=== PATIENT | female | born 1970 | race Caucasian/White ===

== ENCOUNTER 2017-09-18 10:47 | Emergency (ER) | payer MEDICARE, MEDICAID ==
[~2017-09-18] VITALS: Ht 165.1 cm; Wt 90.2 kg
[~2017-09-18 10:47] MED LIST: GABA-530 PO; IBUP-1985 PO; MEDR5TAB PO; METF500T PO; ONDA4TAB12 PO
[2017-09-18 10:50] VITALS: BP 130/80
[2017-09-18 11:19] LABS: CLARITY,URINE SLIGHTLY CLOUDY (Clear); COLOR,URINE YELLOW (Yellow); GLUCOSE, URINE NEGATIVE (Neg); KETONES,URINE NEGATIVE (Neg); LEUKOCYTE ESTERASE ,URINE NEGATIVE (Neg); NITRITES, URINE NEGATIVE (Neg); OCCULT BLOOD,URINE NEGATIVE (Neg); PROTEIN,URINE NEGATIVE (Neg)
[2017-09-18 11:20] LABS: BASOPHILS % (AUTO) 0.4 % (0-1); EOSINOPHILS # (AUTO) 0.2 X10'3 (0-0.9); HEMATOCRIT 40.7 % (35.0-45.0); HEMOGLOBIN 13.9 g/dl (12.0-16.0); LYMPHOCYTES # (AUTO) 1.3 X10'3 (1.1-4.8); LYMPHOCYTES % (AUTO) 14.4 % (21-51); MEAN CORPUSCULAR HEMOGLOBIN 31.3 PG (27.0-31.0); MEAN CORPUSCULAR HGB CONC 34.1 % (33.0-36.5); MEAN CORPUSCULAR VOLUME 91.8 FL (78-98); MEAN PLATELET VOLUME 7.5 FL (7.4-10.4); MONOCYTES # (AUTO) 0.3 X10'3 (0-0.9); MONOCYTES % (AUTO) 3.4 % (2-12); NEUTROPHILS # (AUTO) 7.4 X10'3 (1.8-7.7); NEUTROPHILS % (AUTO) 79.8 % (42-75); PLATELET COUNT 297 X10'3 (140-440); RED BLOOD COUNT 4.43 X10'6 (4.20-5.60); RED CELL DISTRIBUTION WIDTH 13.6 % (11.5-14.5); WHITE BLOOD COUNT 9.2 X10'3 (4.5-11.0)
[2017-09-18 11:25] LABS: UA COLLECTION TYPE CLN CATCH MIDSTREAM
[2017-09-18 11:26] LABS: SQUAMOUS EPITHELIAL CELL,UR MANY /LPF (FEW)
[2017-09-18 11:27] LABS: BACTERIA,URINE 2+ /HPF (Neg); MUCUS STRANDS FEW /LPF (Neg); RBC,URINE 0-2 /HPF (0-2); WBC,URINE 0-4 /HPF (0-4)
[2017-09-18 11:29] LABS: INR 0.9 INR; PROTHROMBIN TIME 9.8 SECONDS (9.0-12.0)
[2017-09-18 11:34] LABS: ALANINE AMINOTRANSFERASE 24 U/L (12-78); ALBUMIN 3.8 G/DL (3.4-5.0); ALBUMIN/GLOBULIN RATIO 0.9 (1.1-1.5); ALKALINE PHOSPHATASE 83 IU/L (46-116); ANION GAP 6 (8-16); ASPARTATE AMINO TRANSFERASE 17 U/L (10-37); BILIRUBIN,TOTAL 0.3 MG/DL (0.1-1.0); BLOOD UREA NITROGEN 14 MG/DL (7-18); BUN/CREATININE RATIO 21.5 (6.6-38.0); CALCIUM 8.7 MG/DL (8.5-10.1); CHLORIDE 104 MMOL/L (99-107); CREATININE 0.65 MG/DL (0.40-0.90); GLUCOSE 96 MG/DL (70-104); SODIUM 140 MMOL/L (135-145); TOTAL CARBON DIOXIDE 29.7 MMOL/L (24-32); TOTAL PROTEIN 7.9 G/DL (6.4-8.2); eGFR > 90 ML/MIN
== END 2017-09-18 14:13 | disposition left against medical advice (07) ==
LOC: ER 10:48
DX: R10.9 Unspecified abdominal pain (principal); Z53.21 Procedure and treatment not carried out due to patient leaving prior to being seen by health care provider
CPT/HCPCS: 36415; 80053; 81001; 85025; 85610

== ENCOUNTER 2017-11-14 15:52 | Emergency (ER) | payer MEDICARE, MEDICAID ==
[~2017-11-14] VITALS: Ht 165.1 cm; Wt 90.0 kg
[2017-11-14] MEDS ORDERED: HYDROcodone/acetaminophen 5mg/325mg tablet PO ONE (16:05)
[2017-11-14 16:06] VITALS: BP 126/86
[2017-11-14] MEDS ORDERED: HYDR-569 PO (16:26)
== END 2017-11-14 17:11 | disposition home or self-care (01) ==
LOC: ER 15:53
DX: S82.402A Unspecified fracture of shaft of left fibula, initial encounter for closed fracture (principal); E11.9 Type 2 diabetes mellitus without complications; M79.7 Fibromyalgia; J45.909 Unspecified asthma, uncomplicated; Z90.49 Acquired absence of other specified parts of digestive tract; Z98.51 Tubal ligation status; Z88.5 Allergy status to narcotic agent; Z79.899 Other long term (current) drug therapy; Z79.84 Long term (current) use of oral hypoglycemic drugs; W01.0XXA Fall on same level from slipping, tripping and stumbling without subsequent striking against object, initial encounter; Y93.89 Activity, other specified; Y92.89 Other specified places as the place of occurrence of the external cause; Y99.8 Other external cause status
CPT/HCPCS: 29515; 73610; 99284; A6449

== ENCOUNTER 2017-11-27 19:22 | Emergency (ER) | payer MEDICARE, MEDICAID ==
[~2017-11-27] VITALS: Ht 165.1 cm; Wt 94.7 kg
[~2017-11-27 19:22] MED LIST changes: +HYDR-569 PO
[2017-11-27 19:36] VITALS: BP 130/84
[2017-11-27] MEDS ORDERED: NAPR-56 PO (21:52)
== END 2017-11-27 22:02 | disposition home or self-care (01) ==
LOC: ER 19:22
DX: S82.62XA Displaced fracture of lateral malleolus of left fibula, initial encounter for closed fracture (principal); E11.9 Type 2 diabetes mellitus without complications; M79.7 Fibromyalgia; J45.909 Unspecified asthma, uncomplicated; Z90.49 Acquired absence of other specified parts of digestive tract; Z98.51 Tubal ligation status; Z79.84 Long term (current) use of oral hypoglycemic drugs; Z88.5 Allergy status to narcotic agent; W01.0XXA Fall on same level from slipping, tripping and stumbling without subsequent striking against object, initial encounter; Y93.89 Activity, other specified; Y92.89 Other specified places as the place of occurrence of the external cause; Y99.8 Other external cause status
CPT/HCPCS: 73610; 99284; A6449

== ENCOUNTER 2018-06-01 16:16 | Emergency (ER) | payer MEDICARE, MEDICAID ==
[~2018-06-01] VITALS: Ht 162.6 cm; Wt 95.8 kg
[2018-06-01 16:22] VITALS: BP 112/70
[2018-06-01] MEDS ORDERED: NAPR-56 PO (17:00)
== END 2018-06-01 17:08 | disposition home or self-care (01) ==
LOC: ER 16:17
DX: G56.01 Carpal tunnel syndrome, right upper limb (principal); J45.909 Unspecified asthma, uncomplicated; E11.9 Type 2 diabetes mellitus without complications; Z90.49 Acquired absence of other specified parts of digestive tract; Z90.89 Acquired absence of other organs; Z88.6 Allergy status to analgesic agent; Z91.018 Allergy to other foods
CPT/HCPCS: 29125; 99283

== ENCOUNTER 2018-12-23 18:09 | Emergency (ER) | payer OTHER, MEDICARE, MEDICAID ==
[~2018-12-23] VITALS: Ht 167.6 cm; Wt 95.5 kg
[~2018-12-23 18:09] MED LIST changes: +HYDR-4383 PO; -HYDR-569 PO
[2018-12-23 18:16] VITALS: BP 165/99
[2018-12-23] MEDS ORDERED: ketorolac tromethamine 15mg/ml inj. IM ONE (19:20)
[2018-12-23] MEDS ORDERED: cyclobenzaprine 10mg tablet PO ONE (19:20)
== END 2018-12-23 20:24 | disposition home or self-care (01) ==
LOC: ER 18:09
DX: S39.012A Strain of muscle, fascia and tendon of lower back, initial encounter (principal); S29.011A Strain of muscle and tendon of front wall of thorax, initial encounter; S46.919A Strain of unspecified muscle, fascia and tendon at shoulder and upper arm level, unspecified arm, initial encounter; S16.1XXA Strain of muscle, fascia and tendon at neck level, initial encounter; S09.11XA Strain of muscle and tendon of head, initial encounter; J45.909 Unspecified asthma, uncomplicated; E11.9 Type 2 diabetes mellitus without complications; Z90.49 Acquired absence of other specified parts of digestive tract; Z90.710 Acquired absence of both cervix and uterus; Z98.51 Tubal ligation status; Z98.890 Other specified postprocedural states; Z88.6 Allergy status to analgesic agent; Z88.5 Allergy status to narcotic agent; Z91.018 Allergy to other foods; Z79.84 Long term (current) use of oral hypoglycemic drugs; Z79.899 Other long term (current) drug therapy; V87.7XXA Person injured in collision between other specified motor vehicles (traffic), initial encounter; Y93.89 Activity, other specified; Y92.89 Other specified places as the place of occurrence of the external cause; Y99.8 Other external cause status
CPT/HCPCS: 71045; 72040; 72070; 72100; 96372; 99283; J1885

== ENCOUNTER 2019-05-24 20:30 | Emergency (ER) | payer MEDICARE, MEDICAID ==
[~2019-05-24] VITALS: Ht 165.1 cm; Wt 102.4 kg
[2019-05-24 21:20] LABS: BASOPHILS # (AUTO) 0.1 X10'3 (0-0.2); BASOPHILS % (AUTO) 1.1 % (0-1); EOSINOPHILS # (AUTO) 0.2 X10'3 (0-0.9); EOSINOPHILS % (AUTO) 2.6 % (0-6); HEMATOCRIT 39.1 % (35.0-45.0); HEMOGLOBIN 13.5 g/dl (12.0-16.0); LYMPHOCYTES % (AUTO) 43.6 % (21-51); MEAN CORPUSCULAR HEMOGLOBIN 32.5 PG (27.0-31.0); MEAN CORPUSCULAR HGB CONC 34.4 g/dL (33.0-36.5); MEAN CORPUSCULAR VOLUME 94.4 FL (78-98); MEAN PLATELET VOLUME 7.5 FL (7.4-10.4); MONOCYTES # (AUTO) 0.4 X10'3 (0-0.9); MONOCYTES % (AUTO) 6.1 % (2-12); NEUTROPHILS # (AUTO) 3.2 X10'3 (1.8-7.7); NEUTROPHILS % (AUTO) 46.6 % (42-75); PLATELET COUNT 239 X10'3 (140-440); RED BLOOD COUNT 4.14 X10'6 (4.20-5.60); RED CELL DISTRIBUTION WIDTH 13.3 % (11.5-14.5); WHITE BLOOD COUNT 6.9 X10'3 (4.5-11.0)
[2019-05-24 21:34] LABS: URINE HCG NEGATIVE (NEG)
[2019-05-24 21:36] LABS: CLARITY,URINE CLEAR (Clear); COLOR,URINE YELLOW (Yellow); GLUCOSE, URINE NEGATIVE (Neg); KETONES,URINE NEGATIVE (Neg); LEUKOCYTE ESTERASE ,URINE NEGATIVE (Neg); NITRITES, URINE NEGATIVE (Neg); OCCULT BLOOD,URINE TRACE-INTACT (Neg); PH,URINE 5.5 (4.8-8.0); PROTEIN,URINE NEGATIVE (Neg); UROBILINOGEN,URINE 0.2 E.U/dL (0.2-1.0)
[2019-05-24 21:39] LABS: ALANINE AMINOTRANSFERASE 50 U/L (12-78); ALBUMIN 3.8 G/DL (3.4-5.0); ALBUMIN/GLOBULIN RATIO 0.9 (1.1-1.5); ALKALINE PHOSPHATASE 82 IU/L (46-116); ANION GAP 8 (8-16); ASPARTATE AMINO TRANSFERASE 23 U/L (10-37); BILIRUBIN,TOTAL 0.2 MG/DL (0.1-1.0); BLOOD UREA NITROGEN 17 MG/DL (7-18); BUN/CREATININE RATIO 21.8 (6.6-38.0); CHLORIDE 105 MMOL/L (99-107); CREATININE 0.78 MG/DL (0.40-0.90); GLUCOSE 150 MG/DL (70-104); LIPASE 112 U/L (73-393); POTASSIUM 3.9 MMOL/L (3.5-5.1); SODIUM 142 MMOL/L (135-145); TOTAL CARBON DIOXIDE 28.8 MMOL/L (24-32); eGFR 80 ML/MIN
[2019-05-24 21:39] LABS: UA COLLECTION TYPE CLN CATCH MIDSTREAM
[2019-05-24 21:41] LABS: BACTERIA,URINE NONE SEEN /HPF (Neg); MUCUS STRANDS NONE SEEN /LPF (Neg); RBC,URINE NONE SEEN /HPF (0-2); SQUAMOUS EPITHELIAL CELL,UR FEW /LPF (FEW); WBC,URINE NONE SEEN /HPF (0-4)
[2019-05-24 22:15] VITALS: BP 130/76
== END 2019-05-24 22:48 | disposition home or self-care (01) ==
LOC: ER 20:30
DX: R10.32 Left lower quadrant pain (principal); J45.909 Unspecified asthma, uncomplicated; E11.9 Type 2 diabetes mellitus without complications; Z88.6 Allergy status to analgesic agent; Z88.5 Allergy status to narcotic agent; Z91.018 Allergy to other foods; Z79.84 Long term (current) use of oral hypoglycemic drugs; Z79.899 Other long term (current) drug therapy; Z90.49 Acquired absence of other specified parts of digestive tract; Z98.51 Tubal ligation status; Z98.890 Other specified postprocedural states
CPT/HCPCS: 36415; 74176; 80053; 81001; 81025; 83690; 85025; 85610; 99284

== ENCOUNTER 2019-06-04 16:09 | Emergency (ER) | payer MEDICARE, MEDICAID ==
[~2019-06-04] VITALS: Ht 165.1 cm; Wt 92.0 kg
[2019-06-04] MEDS ORDERED: GUAI120015 PO (17:14)
[2019-06-04 17:34] VITALS: BP 136/76
== END 2019-06-04 17:35 | disposition home or self-care (01) ==
LOC: ER 16:10
DX: R05 Cough (principal); R09.81 Nasal congestion; J45.909 Unspecified asthma, uncomplicated; E11.9 Type 2 diabetes mellitus without complications; M79.7 Fibromyalgia; F17.200 Nicotine dependence, unspecified, uncomplicated; Z90.49 Acquired absence of other specified parts of digestive tract; Z98.51 Tubal ligation status; Z98.890 Other specified postprocedural states; Z88.6 Allergy status to analgesic agent; Z88.5 Allergy status to narcotic agent; Z91.018 Allergy to other foods
CPT/HCPCS: 99282

== ENCOUNTER 2019-10-30 11:38 | Emergency (ER) | payer MEDICARE, MEDICAID ==
[~2019-10-30] VITALS: Ht 167.6 cm; Wt 98.7 kg
[~2019-10-30 11:38] MED LIST changes: +GUAI120015 PO
[2019-10-30 11:59] VITALS: BP 141/95
[2019-10-30 13:48] LABS: CLARITY,URINE CLEAR (Clear); COLOR,URINE YELLOW (Yellow); GLUCOSE, URINE 250 mg/dl (Neg); KETONES,URINE NEGATIVE (Neg); LEUKOCYTE ESTERASE ,URINE NEGATIVE (Neg); NITRITES, URINE NEGATIVE (Neg); OCCULT BLOOD,URINE NEGATIVE (Neg); PROTEIN,URINE NEGATIVE (Neg); UROBILINOGEN,URINE 0.2 E.U/dL (0.2-1.0)
[2019-10-30 13:50] LABS: UA COLLECTION TYPE CLN CATCH MIDSTREAM
[2019-10-30 14:01] LABS: BASOPHILS # (AUTO) 0.1 X10'3 (0-0.2); BASOPHILS % (AUTO) 1.1 % (0-1); EOSINOPHILS # (AUTO) 0.3 X10'3 (0-0.9); EOSINOPHILS % (AUTO) 4.5 % (0-6); HEMATOCRIT 41.7 % (35.0-45.0); HEMOGLOBIN 14.2 g/dl (12.0-16.0); LYMPHOCYTES # (AUTO) 2.8 X10'3 (1.1-4.8); MEAN CORPUSCULAR HEMOGLOBIN 31.3 PG (27.0-31.0); MEAN CORPUSCULAR VOLUME 92.1 FL (78-98); MEAN PLATELET VOLUME 7.5 FL (7.4-10.4); MONOCYTES # (AUTO) 0.5 X10'3 (0-0.9); MONOCYTES % (AUTO) 6.5 % (2-12); NEUTROPHILS # (AUTO) 3.4 X10'3 (1.8-7.7); NEUTROPHILS % (AUTO) 47.9 % (42-75); PLATELET COUNT 274 X10'3 (140-440); RED BLOOD COUNT 4.52 X10'6 (4.20-5.60); RED CELL DISTRIBUTION WIDTH 13.3 % (11.5-14.5); WHITE BLOOD COUNT 7.1 X10'3 (4.5-11.0)
[2019-10-30 14:21] LABS: ALANINE AMINOTRANSFERASE 56 U/L (12-78); ALBUMIN 3.9 G/DL (3.4-5.0); ALKALINE PHOSPHATASE 93 IU/L (46-116); ANION GAP 6 (8-16); ASPARTATE AMINO TRANSFERASE 26 U/L (10-37); BILIRUBIN,TOTAL 0.3 MG/DL (0.1-1.0); BLOOD UREA NITROGEN 12 MG/DL (7-18); BUN/CREATININE RATIO 17.1 (6.6-38.0); CALCIUM 9.3 MG/DL (8.5-10.1); CHLORIDE 105 MMOL/L (99-107); GLUCOSE 130 MG/DL (70-104); SODIUM 139 MMOL/L (135-145); TOTAL CARBON DIOXIDE 28.2 MMOL/L (24-32); eGFR 90 ML/MIN
== END 2019-10-30 16:01 | disposition home or self-care (01) ==
LOC: ER 11:39
DX: E11.65 Type 2 diabetes mellitus with hyperglycemia (principal); M79.7 Fibromyalgia; R51 Headache; Z90.49 Acquired absence of other specified parts of digestive tract; Z98.51 Tubal ligation status; J45.909 Unspecified asthma, uncomplicated; Z88.5 Allergy status to narcotic agent; Z88.6 Allergy status to analgesic agent; Z91.018 Allergy to other foods; Z79.84 Long term (current) use of oral hypoglycemic drugs; Z79.899 Other long term (current) drug therapy
CPT/HCPCS: 36415; 80053; 81003; 82948; 84484; 85025; 87502; 87503; 93005; 99284

== ENCOUNTER 2020-03-23 05:21 | Emergency (ER) | payer MEDICARE, MEDICAID ==
[~2020-03-23] VITALS: Ht 165.1 cm; Wt 93.0 kg
[2020-03-23 05:23] VITALS: BP 129/84
--- NOTE | 2020-03-23 06:26 | NUR ---
patient asleep on bed respirations regular,awaiting to be seen by ED MD.
[2020-03-23] MEDS ORDERED: LIDOcaine 5% patch TP ONE (06:40)
[2020-03-23] MEDS ORDERED: LIDOcaine 5% patch TP SCH (06:40)
[2020-03-23] MEDS ORDERED: NAPR-56 PO (06:50)
== END 2020-03-23 06:59 | disposition home or self-care (01) ==
LOC: ER 05:21
DX: M25.531 Pain in right wrist (principal); J45.909 Unspecified asthma, uncomplicated; E11.9 Type 2 diabetes mellitus without complications; R20.0 Anesthesia of skin; Z90.49 Acquired absence of other specified parts of digestive tract; Z98.51 Tubal ligation status; Z98.890 Other specified postprocedural states; Z88.6 Allergy status to analgesic agent; Z88.5 Allergy status to narcotic agent; Z88.8 Allergy status to other drugs, medicaments and biological substances; Z79.899 Other long term (current) drug therapy
CPT/HCPCS: 99282; 99283

== ENCOUNTER 2020-04-04 19:07 | Emergency (ER) | payer MEDICARE, MEDICAID ==
[~2020-04-04] VITALS: Ht 165.1 cm; Wt 93.2 kg
[~2020-04-04 19:07] MED LIST changes: +NAPR-56 PO
[2020-04-04 19:50] LABS: CLARITY,URINE CLEAR (Clear); COLOR,URINE YELLOW (Yellow); GLUCOSE, URINE >=1000 mg/dl (Neg); KETONES,URINE NEGATIVE (Neg); LEUKOCYTE ESTERASE ,URINE NEGATIVE (Neg); NITRITES, URINE NEGATIVE (Neg); OCCULT BLOOD,URINE TRACE-INTACT (Neg); PROTEIN,URINE NEGATIVE (Neg)
[2020-04-04 19:52] LABS: BASOPHILS # (AUTO) 0.1 X10'3 (0-0.2); BASOPHILS % (AUTO) 1.2 % (0-1); EOSINOPHILS # (AUTO) 0.2 X10'3 (0-0.9); EOSINOPHILS % (AUTO) 3.5 % (0-6); HEMATOCRIT 39.8 % (35.0-45.0); HEMOGLOBIN 13.4 g/dl (12.0-16.0); LYMPHOCYTES # (AUTO) 3.1 X10'3 (1.1-4.8); LYMPHOCYTES % (AUTO) 44.8 % (21-51); MEAN CORPUSCULAR HEMOGLOBIN 30.8 PG (27.0-31.0); MEAN CORPUSCULAR HGB CONC 33.7 g/dL (33.0-36.5); MEAN CORPUSCULAR VOLUME 91.5 FL (78-98); MONOCYTES # (AUTO) 0.5 X10'3 (0-0.9); NEUTROPHILS % (AUTO) 43.5 % (42-75); PLATELET COUNT 233 X10'3 (140-440); RED BLOOD COUNT 4.35 X10'6 (4.20-5.60); RED CELL DISTRIBUTION WIDTH 12.9 % (11.5-14.5); WHITE BLOOD COUNT 6.9 X10'3 (4.5-11.0)
[2020-04-04 19:52] LABS: UA COLLECTION TYPE CLN CATCH MIDSTREAM
[2020-04-04 19:56] LABS: WBC,URINE 0-4 /HPF (0-4)
[2020-04-04 19:57] LABS: BACTERIA,URINE NONE SEEN /HPF (Neg); RBC,URINE 0-2 /HPF (0-2); SQUAMOUS EPITHELIAL CELL,UR FEW /LPF (FEW)
[2020-04-04 20:07] LABS: ALANINE AMINOTRANSFERASE 54 U/L (12-78); ALBUMIN 3.8 G/DL (3.4-5.0); ALKALINE PHOSPHATASE 151 IU/L (46-116); AMYLASE 33 U/L (25-115); ANION GAP 3 (8-16); ASPARTATE AMINO TRANSFERASE 23 U/L (10-37); BILIRUBIN,TOTAL 0.4 MG/DL (0.1-1.0); BLOOD UREA NITROGEN 10 MG/DL (7-18); CALCIUM 8.7 MG/DL (8.5-10.1); CHLORIDE 104 MMOL/L (99-107); GLUCOSE 367 MG/DL (70-104); LIPASE 168 U/L (73-393); POTASSIUM 4.1 MMOL/L (3.5-5.1); SODIUM 138 MMOL/L (135-145); TOTAL CARBON DIOXIDE 31.3 MMOL/L (24-32); TOTAL PROTEIN 7.6 G/DL (6.4-8.2); eGFR 59 ML/MIN
[2020-04-04] MEDS ORDERED: insulin regular, human U-100 3ml vial - multi-dose SQ ONE ×2 (20:15→22:35)
[2020-04-04] MEDS ORDERED: normal saline 1000ML IV soln IVB ONE ×2 (20:15→21:50)
[2020-04-04] MEDS ORDERED: insulin regular, human 10 units/0.1 ml syringe SQ ONE (20:15)
[2020-04-04] MEDS ORDERED: ondansetron/PF 4mg/2ml inj IV ONE (21:55)
[2020-04-04 23:47] VITALS: BP 141/97
[2020-04-04] MEDS ORDERED: GLIP10TA11 PO (23:48)
[2020-04-04] MEDS ORDERED: ONDA4TAB6 PO (23:49)
== END 2020-04-04 23:54 | disposition home or self-care (01) ==
LOC: ER 19:07
DX: E11.65 Type 2 diabetes mellitus with hyperglycemia (principal); J45.909 Unspecified asthma, uncomplicated; M79.7 Fibromyalgia; Z90.49 Acquired absence of other specified parts of digestive tract; Z98.890 Other specified postprocedural states; Z98.51 Tubal ligation status; Z88.6 Allergy status to analgesic agent; Z88.5 Allergy status to narcotic agent; Z79.899 Other long term (current) drug therapy
CPT/HCPCS: 36415; 80053; 81001; 82150; 82948; 83690; 85025; 96374; 99284; J2405; J7030; J1815

== ENCOUNTER 2020-04-14 18:42 | Emergency (ER) | payer MEDICARE, MEDICAID ==
[~2020-04-14] VITALS: Ht 165.1 cm; Wt 92.3 kg
[~2020-04-14 18:42] MED LIST changes: +GLIP10TA11 PO; +ONDA4TAB6 PO
[2020-04-14] MEDS ORDERED: pantoprazole 40 MG vial IV ONE (19:15)
[2020-04-14] MEDS ORDERED: normal saline 1000ML IV soln IVB ONE (19:15)
[2020-04-14] MEDS ORDERED: insulin regular, human 10 units/0.1 ml syringe SQ ONE (19:15)
[2020-04-14] MEDS ORDERED: ondansetron/PF 4mg/2ml inj IV ONE (19:15)
[2020-04-14] MEDS ORDERED: insulin regular, human U-100 3ml vial - multi-dose SQ ONE (19:20)
[2020-04-14 19:35] LABS: BASOPHILS # (AUTO) 0.1 X10'3 (0-0.2); BASOPHILS % (AUTO) 0.8 % (0-1); CLARITY,URINE CLEAR (Clear); COLOR,URINE YELLOW (Yellow); EOSINOPHILS # (AUTO) 0.2 X10'3 (0-0.9); EOSINOPHILS % (AUTO) 3.2 % (0-6); GLUCOSE, URINE >=1000 mg/dl (Neg); HEMATOCRIT 40.9 % (35.0-45.0); HEMOGLOBIN 13.9 g/dl (12.0-16.0); KETONES,URINE NEGATIVE (Neg); LEUKOCYTE ESTERASE ,URINE NEGATIVE (Neg); LYMPHOCYTES # (AUTO) 3.2 X10'3 (1.1-4.8); LYMPHOCYTES % (AUTO) 42.4 % (21-51); MEAN CORPUSCULAR HEMOGLOBIN 31.4 PG (27.0-31.0); MEAN CORPUSCULAR VOLUME 92.5 FL (78-98); MEAN PLATELET VOLUME 8.2 FL (7.4-10.4); MONOCYTES # (AUTO) 0.5 X10'3 (0-0.9); MONOCYTES % (AUTO) 7.1 % (2-12); NEUTROPHILS # (AUTO) 3.5 X10'3 (1.8-7.7); NEUTROPHILS % (AUTO) 46.5 % (42-75); NITRITES, URINE NEGATIVE (Neg); OCCULT BLOOD,URINE NEGATIVE (Neg); PLATELET COUNT 245 X10'3 (140-440); PROTEIN,URINE NEGATIVE (Neg); RED BLOOD COUNT 4.42 X10'6 (4.20-5.60); RED CELL DISTRIBUTION WIDTH 13.1 % (11.5-14.5); WHITE BLOOD COUNT 7.5 X10'3 (4.5-11.0)
[2020-04-14 19:38] LABS: URINE HCG NEGATIVE (NEG)
[2020-04-14 19:41] LABS: UA COLLECTION TYPE CLN CATCH MIDSTREAM
[2020-04-14 19:42] LABS: BACTERIA,URINE FEW /HPF (Neg); RBC,URINE NONE SEEN /HPF (0-2); SQUAMOUS EPITHELIAL CELL,UR FEW /LPF (FEW); WBC,URINE NONE SEEN /HPF (0-4)
[2020-04-14 19:57] LABS: ALANINE AMINOTRANSFERASE 43 U/L (12-78); ALBUMIN 3.8 G/DL (3.4-5.0); ALKALINE PHOSPHATASE 144 IU/L (46-116); ANION GAP 6 (8-16); ASPARTATE AMINO TRANSFERASE 20 U/L (10-37); BILIRUBIN,TOTAL 0.4 MG/DL (0.1-1.0); BLOOD UREA NITROGEN 16 MG/DL (7-18); CALCIUM 9.1 MG/DL (8.5-10.1); CHLORIDE 100 MMOL/L (99-107); CREATININE 0.84 MG/DL (0.40-0.90); GLUCOSE 419 MG/DL (70-104); POTASSIUM 4.1 MMOL/L (3.5-5.1); SODIUM 135 MMOL/L (135-145); TOTAL CARBON DIOXIDE 28.9 MMOL/L (24-32); TOTAL PROTEIN 7.8 G/DL (6.4-8.2); eGFR 73 ML/MIN
[2020-04-14 21:05] LABS: TROPONIN I < 0.04 NG/ML (0.0-0.05)
[2020-04-14 21:56] VITALS: BP 147/96
== END 2020-04-14 21:57 | disposition home or self-care (01) ==
LOC: ER 18:42
DX: E11.65 Type 2 diabetes mellitus with hyperglycemia (principal); J45.909 Unspecified asthma, uncomplicated; R53.83 Other fatigue; R51 Headache; R11.2 Nausea with vomiting, unspecified; Z90.49 Acquired absence of other specified parts of digestive tract; Z98.51 Tubal ligation status; Z98.890 Other specified postprocedural states; Z88.6 Allergy status to analgesic agent; Z88.5 Allergy status to narcotic agent; Z88.8 Allergy status to other drugs, medicaments and biological substances; Z79.899 Other long term (current) drug therapy
CPT/HCPCS: 36415; 80053; 81001; 81025; 82009; 82948; 84484; 85025; 93005; 96374; 96375; 99285; C9113; J2405; J7030; 71045; 96372; J1815

== ENCOUNTER 2020-04-22 12:00 | Emergency (ER) | payer MEDICARE, MEDICAID ==
[~2020-04-22] VITALS: Ht 165.1 cm; Wt 92.3 kg
[2020-04-22] MEDS ORDERED: ondansetron/PF 4mg/2ml inj IV ONE (12:10)
[2020-04-22] MEDS ORDERED: aspirin 81mg tab.chew PO ONE (12:10)
[2020-04-22] MEDS: nitroGLYCERIN 0.4mg SUBLingual tab SL PRN ×2 (12:24→12:37)
[2020-04-22 12:30] LABS: BASOPHILS # (AUTO) 0.1 X10'3 (0-0.2); BASOPHILS % (AUTO) 1.1 % (0-1); EOSINOPHILS # (AUTO) 0.2 X10'3 (0-0.9); EOSINOPHILS % (AUTO) 2.6 % (0-6); HEMOGLOBIN 14.3 g/dl (12.0-16.0); LYMPHOCYTES # (AUTO) 2.5 X10'3 (1.1-4.8); LYMPHOCYTES % (AUTO) 38.1 % (21-51); MEAN CORPUSCULAR HEMOGLOBIN 30.5 PG (27.0-31.0); MEAN CORPUSCULAR HGB CONC 33.2 g/dL (33.0-36.5); MEAN CORPUSCULAR VOLUME 91.8 FL (78-98); MEAN PLATELET VOLUME 8.1 FL (7.4-10.4); MONOCYTES # (AUTO) 0.4 X10'3 (0-0.9); MONOCYTES % (AUTO) 6.3 % (2-12); NEUTROPHILS # (AUTO) 3.4 X10'3 (1.8-7.7); NEUTROPHILS % (AUTO) 51.9 % (42-75); PLATELET COUNT 228 X10'3 (140-440); RED BLOOD COUNT 4.68 X10'6 (4.20-5.60); RED CELL DISTRIBUTION WIDTH 12.8 % (11.5-14.5); WHITE BLOOD COUNT 6.5 X10'3 (4.5-11.0)
--- NOTE | 2020-04-22 12:30 | NUR ---
Pt rating CP 01/27
[2020-04-22 12:41] LABS: ALANINE AMINOTRANSFERASE 50 U/L (12-78); ALBUMIN 3.7 G/DL (3.4-5.0); ALBUMIN/GLOBULIN RATIO 0.9 (1.1-1.5); ALKALINE PHOSPHATASE 134 IU/L (46-116); ANION GAP 5 (8-16); ASPARTATE AMINO TRANSFERASE 20 U/L (10-37); BILIRUBIN,TOTAL 0.5 MG/DL (0.1-1.0); BLOOD UREA NITROGEN 12 MG/DL (7-18); CALCIUM 8.6 MG/DL (8.5-10.1); CHLORIDE 103 MMOL/L (99-107); D-DIMER < 0.19 MG/L FEU (0-0.50); GLUCOSE 359 MG/DL (70-104); POTASSIUM 3.9 MMOL/L (3.5-5.1); SODIUM 136 MMOL/L (135-145); TOTAL CARBON DIOXIDE 28.2 MMOL/L (24-32); TOTAL PROTEIN 7.6 G/DL (6.4-8.2); eGFR 77 ML/MIN
--- NOTE | 2020-04-22 12:42 | NUR ---
Pt reports CP worsened after 2nd dose of Nitro rating pain now 7/10
[2020-04-22] MEDS ORDERED: mag hydrox/Alum hydrox/simeth 30ml oral suspension PO ONE (12:50)
[2020-04-22] MEDS ORDERED: sucralfate 1 gm tablet PO ONE (12:50)
[2020-04-22] MEDS ORDERED: LIDOcaine Viscous 15ml cup MM ONE (12:50)
[2020-04-22 15:32] VITALS: BP 125/76
== END 2020-04-22 15:23 | disposition home or self-care (01) ==
LOC: ER 12:01
DX: R07.89 Other chest pain (principal); E78.00 Pure hypercholesterolemia, unspecified; J45.909 Unspecified asthma, uncomplicated; E11.9 Type 2 diabetes mellitus without complications; R11.0 Nausea; Z90.49 Acquired absence of other specified parts of digestive tract; Z90.710 Acquired absence of both cervix and uterus; Z98.51 Tubal ligation status; Z98.890 Other specified postprocedural states; Z88.8 Allergy status to other drugs, medicaments and biological substances; Z79.899 Other long term (current) drug therapy
CPT/HCPCS: 36415; 71045; 80053; 83880; 84484; 85025; 85379; 93005; 96374; 99285; J2405

== ENCOUNTER 2020-05-16 08:43 | Emergency (ER) | payer MEDICARE, MEDICAID ==
[~2020-05-16] VITALS: Ht 165.1 cm; Wt 89.5 kg
[~2020-05-16 08:43] MED LIST changes: -NAPR-56 PO
[2020-05-16] MEDS ORDERED: pantoprazole 40 MG vial IV ONE (09:10)
[2020-05-16] MEDS ORDERED: famotidine/PF 10 mg/ml inj IV ONE (09:10)
[2020-05-16] MEDS ORDERED: normal saline 1000ML IV soln IVB ONE ×2 (09:10→10:15)
[2020-05-16] MEDS ORDERED: ondansetron/PF 4mg/2ml inj IV ONE (09:10)
[2020-05-16 09:40] LABS: BASOPHILS # (AUTO) 0.1 X10'3 (0-0.2); EOSINOPHILS # (AUTO) 0.1 X10'3 (0-0.9); HEMATOCRIT 44.5 % (35.0-45.0); LYMPHOCYTES # (AUTO) 2.4 X10'3 (1.1-4.8); LYMPHOCYTES % (AUTO) 43.5 % (21-51); MEAN CORPUSCULAR HEMOGLOBIN 30.6 PG (27.0-31.0); MEAN CORPUSCULAR HGB CONC 33.7 g/dL (33.0-36.5); MEAN CORPUSCULAR VOLUME 90.9 FL (78-98); MEAN PLATELET VOLUME 8.2 FL (7.4-10.4); MONOCYTES # (AUTO) 0.4 X10'3 (0-0.9); MONOCYTES % (AUTO) 7.5 % (2-12); NEUTROPHILS # (AUTO) 2.5 X10'3 (1.8-7.7); PLATELET COUNT 213 X10'3 (140-440); RED BLOOD COUNT 4.89 X10'6 (4.20-5.60); RED CELL DISTRIBUTION WIDTH 13.4 % (11.5-14.5); WHITE BLOOD COUNT 5.5 X10'3 (4.5-11.0)
[2020-05-16 09:56] LABS: ALANINE AMINOTRANSFERASE 60 U/L (12-78); ALBUMIN 3.9 G/DL (3.4-5.0); ALBUMIN/GLOBULIN RATIO 0.9 (1.1-1.5); ALKALINE PHOSPHATASE 136 IU/L (46-116); ANION GAP 6 (8-16); ASPARTATE AMINO TRANSFERASE 21 U/L (10-37); BILIRUBIN,TOTAL 0.6 MG/DL (0.1-1.0); BLOOD UREA NITROGEN 17 MG/DL (7-18); BUN/CREATININE RATIO 21.3 (6.6-38.0); CALCIUM 9.2 MG/DL (8.5-10.1); CHLORIDE 100 MMOL/L (99-107); GLUCOSE 344 MG/DL (70-104); LIPASE 127 U/L (73-393); POTASSIUM 4.1 MMOL/L (3.5-5.1); SODIUM 135 MMOL/L (135-145); TOTAL CARBON DIOXIDE 28.7 MMOL/L (24-32); TOTAL PROTEIN 8.1 G/DL (6.4-8.2); eGFR 77 ML/MIN
[2020-05-16] MEDS ORDERED: insulin regular, human 10 units/0.1 ml syringe SQ ONE (10:15)
[2020-05-16 10:55] LABS: CLARITY,URINE CLEAR (Clear); COLOR,URINE YELLOW (Yellow); GLUCOSE, URINE >=1000 mg/dl (Neg); KETONES,URINE NEGATIVE (Neg); LEUKOCYTE ESTERASE ,URINE NEGATIVE (Neg); NITRITES, URINE NEGATIVE (Neg); OCCULT BLOOD,URINE TRACE-LYSED (Neg); PROTEIN,URINE NEGATIVE (Neg); URINE HCG NEGATIVE (NEG); UROBILINOGEN,URINE 0.2 E.U/dL (0.2-1.0)
[2020-05-16 10:56] LABS: UA COLLECTION TYPE CLN CATCH MIDSTREAM
[2020-05-16 11:01] LABS: BACTERIA,URINE NONE SEEN /HPF (Neg); MUCUS STRANDS NONE SEEN /LPF (Neg); RBC,URINE 0-2 /HPF (0-2); SQUAMOUS EPITHELIAL CELL,UR FEW /LPF (FEW); WBC,URINE 0-4 /HPF (0-4)
[2020-05-16 11:39] VITALS: BP 127/78
[2020-05-16] MEDS ORDERED: proCHLORperazine 10 MG/2 ml inj IV ONE (11:45)
[2020-05-16] MEDS ORDERED: PANT-47 PO (11:59)
[2020-05-16] MEDS ORDERED: FAMO40TA73 PO (11:59)
== END 2020-05-16 12:23 | disposition home or self-care (01) ==
LOC: ER 08:43
DX: K29.00 Acute gastritis without bleeding (principal); K76.0 Fatty (change of) liver, not elsewhere classified; R11.2 Nausea with vomiting, unspecified; E78.00 Pure hypercholesterolemia, unspecified; J45.909 Unspecified asthma, uncomplicated; E11.9 Type 2 diabetes mellitus without complications; Z98.51 Tubal ligation status; Z90.49 Acquired absence of other specified parts of digestive tract; Z98.890 Other specified postprocedural states; Z88.5 Allergy status to narcotic agent; Z88.8 Allergy status to other drugs, medicaments and biological substances; Z79.899 Other long term (current) drug therapy
CPT/HCPCS: 36415; 74176; 80053; 81001; 81025; 82948; 83690; 85025; 96361; 96374; 96375; 99284; C9113; J0780; J1815; J2405; J3490; J7030

== ENCOUNTER 2020-08-03 13:02 | Emergency (ER) | payer MEDICARE, MEDICAID ==
[~2020-08-03] VITALS: Ht 167.6 cm; Wt 95.0 kg
[~2020-08-03 13:02] MED LIST changes: +FAMO40TA73 PO; +PANT-47 PO
[2020-08-03] MEDS ORDERED: dexamethasone sod phosphate 10mg/ml inj IM STA (14:33)
[2020-08-03] MEDS ORDERED: DEXA6TAB6 PO (14:37)
[2020-08-03 14:48] VITALS: BP 137/101
== END 2020-08-03 15:16 | disposition home or self-care (01) ==
LOC: ER 13:02
DX: U07.1 COVID-19 (principal); R06.02 Shortness of breath; J45.909 Unspecified asthma, uncomplicated; E78.00 Pure hypercholesterolemia, unspecified; E11.9 Type 2 diabetes mellitus without complications; M79.7 Fibromyalgia; Z88.8 Allergy status to other drugs, medicaments and biological substances; Z91.018 Allergy to other foods; Z79.899 Other long term (current) drug therapy; Z90.49 Acquired absence of other specified parts of digestive tract; Z90.710 Acquired absence of both cervix and uterus; Z98.51 Tubal ligation status
CPT/HCPCS: 71045; 96372; 99283; J1100

== ENCOUNTER 2020-08-12 19:11 | Emergency (ER) | payer MEDICARE, MEDICAID ==
[~2020-08-12] VITALS: Ht 167.6 cm; Wt 90.9 kg
[~2020-08-12 19:11] MED LIST changes: +DEXA6TAB6 PO
[2020-08-12] MEDS ORDERED: mag hydrox/Alum hydrox/simeth 30ml oral suspension PO ONE (19:55)
[2020-08-12] MEDS ORDERED: diphenhydrAMINE 25mg capsule PO ONE (19:55)
[2020-08-12] MEDS ORDERED: ondansetron 4mg rapidly disintigrating tab PO ONE (19:55)
[2020-08-12] MEDS ORDERED: LIDOcaine Viscous 15ml cup MM ONE (19:55)
[2020-08-12 20:24] LABS: BASOPHILS # (AUTO) 0.1 X10'3 (0-0.2); BASOPHILS % (AUTO) 1.4 % (0-1); EOSINOPHILS # (AUTO) 0.1 X10'3 (0-0.9); EOSINOPHILS % (AUTO) 0.9 % (0-6); HEMATOCRIT 42.8 % (35.0-45.0); HEMOGLOBIN 14.5 g/dl (12.0-16.0); LYMPHOCYTES # (AUTO) 3.1 X10'3 (1.1-4.8); LYMPHOCYTES % (AUTO) 41.4 % (21-51); MEAN CORPUSCULAR HEMOGLOBIN 30.8 PG (27.0-31.0); MEAN CORPUSCULAR HGB CONC 33.7 g/dL (33.0-36.5); MEAN CORPUSCULAR VOLUME 91.2 FL (78-98); MEAN PLATELET VOLUME 7.6 FL (7.4-10.4); MONOCYTES # (AUTO) 0.6 X10'3 (0-0.9); MONOCYTES % (AUTO) 8.1 % (2-12); NEUTROPHILS # (AUTO) 3.6 X10'3 (1.8-7.7); NEUTROPHILS % (AUTO) 48.2 % (42-75); PLATELET COUNT 262 X10'3 (140-440); RED CELL DISTRIBUTION WIDTH 13.7 % (11.5-14.5); WHITE BLOOD COUNT 7.5 X10'3 (4.5-11.0)
[2020-08-12 20:46] LABS: ALANINE AMINOTRANSFERASE 56 U/L (12-78); ALBUMIN 3.2 G/DL (3.4-5.0); ALBUMIN/GLOBULIN RATIO 0.7 (1.1-1.5); ALKALINE PHOSPHATASE 139 IU/L (46-116); ANION GAP 5 (8-16); ASPARTATE AMINO TRANSFERASE 32 U/L (10-37); BILIRUBIN,TOTAL 0.4 MG/DL (0.1-1.0); BLOOD UREA NITROGEN 15 MG/DL (7-18); BUN/CREATININE RATIO 18.3 (6.6-38.0); CALCIUM 8.7 MG/DL (8.5-10.1); CHLORIDE 103 MMOL/L (99-107); CREATININE 0.82 MG/DL (0.40-0.90); GLUCOSE 284 MG/DL (70-104); LIPASE 88 U/L (73-393); POTASSIUM 4.3 MMOL/L (3.5-5.1); SODIUM 138 MMOL/L (135-145); TOTAL CARBON DIOXIDE 30.5 MMOL/L (24-32); TOTAL PROTEIN 7.7 G/DL (6.4-8.2); eGFR 74 ML/MIN
[2020-08-12] MEDS ORDERED: SUCR1TAB PO (21:06)
[2020-08-12 21:17] VITALS: BP 126/89
== END 2020-08-12 21:15 | disposition home or self-care (01) ==
LOC: ER 19:12
DX: K29.00 Acute gastritis without bleeding (principal); U07.1 COVID-19; E78.00 Pure hypercholesterolemia, unspecified; J45.909 Unspecified asthma, uncomplicated; E11.9 Type 2 diabetes mellitus without complications; Z90.49 Acquired absence of other specified parts of digestive tract; Z98.51 Tubal ligation status
CPT/HCPCS: 36415; 80053; 83690; 85025; 99284; Q0163

== ENCOUNTER 2020-11-26 12:10 | Emergency (ER) | payer MEDICARE, MEDICAID ==
[~2020-11-26] VITALS: Ht 167.6 cm; Wt 96.4 kg
[~2020-11-26 12:10] MED LIST changes: +SUCR1TAB PO
[2020-11-26] MEDS ORDERED: famotidine 20mg tablet PO ONE (12:50)
[2020-11-26] MEDS ORDERED: ondansetron 4mg rapidly disintigrating tab PO ONE (12:50)
[2020-11-26 13:16] LABS: BASOPHILS # (AUTO) 0.1 X10'3 (0-0.2); BASOPHILS % (AUTO) 1.2 % (0-1); EOSINOPHILS # (AUTO) 0.3 X10'3 (0-0.9); EOSINOPHILS % (AUTO) 5.8 % (0-6); HEMATOCRIT 44.6 % (35.0-45.0); HEMOGLOBIN 14.9 g/dl (12.0-16.0); LYMPHOCYTES # (AUTO) 2.1 X10'3 (1.1-4.8); LYMPHOCYTES % (AUTO) 36.2 % (21-51); MEAN CORPUSCULAR HEMOGLOBIN 30.5 PG (27.0-31.0); MEAN CORPUSCULAR HGB CONC 33.3 g/dL (33.0-36.5); MEAN CORPUSCULAR VOLUME 91.4 FL (78-98); MEAN PLATELET VOLUME 7.9 FL (7.4-10.4); MONOCYTES # (AUTO) 0.4 X10'3 (0-0.9); MONOCYTES % (AUTO) 7.2 % (2-12); NEUTROPHILS # (AUTO) 2.8 X10'3 (1.8-7.7); NEUTROPHILS % (AUTO) 49.6 % (42-75); PLATELET COUNT 268 X10'3 (140-440); RED BLOOD COUNT 4.88 X10'6 (4.20-5.60); RED CELL DISTRIBUTION WIDTH 13.7 % (11.5-14.5); WHITE BLOOD COUNT 5.7 X10'3 (4.5-11.0)
[2020-11-26 13:35] LABS: ALANINE AMINOTRANSFERASE 44 U/L (12-78); ALBUMIN 4.1 G/DL (3.4-5.0); ALBUMIN/GLOBULIN RATIO 0.9 (1.1-1.5); ALKALINE PHOSPHATASE 118 IU/L (46-116); ASPARTATE AMINO TRANSFERASE 22 U/L (10-37); BILIRUBIN,TOTAL 0.3 MG/DL (0.1-1.0); BLOOD UREA NITROGEN 15 MG/DL (7-18); BUN/CREATININE RATIO 22.7 (6.6-38.0); CALCIUM 9.7 MG/DL (8.5-10.1); CHLORIDE 105 MMOL/L (99-107); CREATININE 0.66 MG/DL (0.40-0.90); GLUCOSE 139 MG/DL (70-104); TOTAL PROTEIN 8.5 G/DL (6.4-8.2); TROPONIN I < 0.04 NG/ML (0.0-0.05); eGFR > 90 ML/MIN
[2020-11-26 13:39] LABS: POTASSIUM 5.1 MMOL/L (3.5-5.1); SODIUM 142 MMOL/L (135-145)
[2020-11-26 13:41] LABS: ANION GAP 7 (8-16); TOTAL CARBON DIOXIDE 31.1 MMOL/L (24-32)
[2020-11-26] MEDS ORDERED: ONDA4TAB6 PO (14:20)
[2020-11-26 14:22] LABS: CLARITY,URINE CLOUDY (Clear); COLOR,URINE YELLOW (Yellow); GLUCOSE, URINE >=1000 mg/dl (Neg); KETONES,URINE 15 mg/dl (Neg); LEUKOCYTE ESTERASE ,URINE NEGATIVE (Neg); NITRITES, URINE NEGATIVE (Neg); OCCULT BLOOD,URINE NEGATIVE (Neg); PROTEIN,URINE NEGATIVE (Neg)
[2020-11-26 14:24] LABS: UA COLLECTION TYPE CLN CATCH MIDSTREAM
[2020-11-26] MEDS ORDERED: metoclopramide 10mg tablet PO ONE (14:25)
[2020-11-26 14:29] VITALS: BP 133/87
[2020-11-26 14:34] LABS: SQUAMOUS EPITHELIAL CELL,UR FEW /LPF (FEW)
[2020-11-26 14:35] LABS: AMORPHOUS PHOSPHATES 3+; BACTERIA,URINE 2+ /HPF (Neg)
[2020-11-26 14:36] LABS: RBC,URINE 0-2 /HPF (0-2); WBC,URINE 0-4 /HPF (0-4)
== END 2020-11-26 14:30 | disposition home or self-care (01) ==
LOC: ER 12:12
DX: R11.2 Nausea with vomiting, unspecified (principal); R10.9 Unspecified abdominal pain; R42 Dizziness and giddiness; E78.00 Pure hypercholesterolemia, unspecified; I10 Essential (primary) hypertension; E11.9 Type 2 diabetes mellitus without complications; Z90.49 Acquired absence of other specified parts of digestive tract; Z90.710 Acquired absence of both cervix and uterus; Z98.51 Tubal ligation status; Z98.890 Other specified postprocedural states; Z79.899 Other long term (current) drug therapy
CPT/HCPCS: 36415; 80053; 81001; 84484; 85025; 99284; J8597

== ENCOUNTER 2021-02-16 12:29 | Emergency (ER) | payer MEDICARE, MEDICAID ==
[~2021-02-16] VITALS: Ht 165.1 cm; Wt 94.3 kg
[2021-02-16 13:20] LABS: CLARITY,URINE CLEAR (Clear); COLOR,URINE STRAW (Yellow); GLUCOSE, URINE >=1000 mg/dl (Neg); KETONES,URINE NEGATIVE (Neg); LEUKOCYTE ESTERASE ,URINE NEGATIVE (Neg); NITRITES, URINE NEGATIVE (Neg); OCCULT BLOOD,URINE NEGATIVE (Neg); PROTEIN,URINE NEGATIVE (Neg); UROBILINOGEN,URINE 0.2 E.U/dL (0.2-1.0)
[2021-02-16 13:21] LABS: BASOPHILS # (AUTO) 0.1 X10'3 (0-0.2); BASOPHILS % (AUTO) 0.9 % (0-1); EOSINOPHILS # (AUTO) 0.2 X10'3 (0-0.9); EOSINOPHILS % (AUTO) 3.3 % (0-6); HEMATOCRIT 42.1 % (35.0-45.0); HEMOGLOBIN 14.3 g/dl (12.0-16.0); LYMPHOCYTES # (AUTO) 2.4 X10'3 (1.1-4.8); LYMPHOCYTES % (AUTO) 37.2 % (21-51); MEAN CORPUSCULAR HEMOGLOBIN 30.6 PG (27.0-31.0); MEAN CORPUSCULAR HGB CONC 34.1 g/dL (33.0-36.5); MEAN CORPUSCULAR VOLUME 89.6 FL (78-98); MEAN PLATELET VOLUME 7.6 FL (7.4-10.4); MONOCYTES # (AUTO) 0.4 X10'3 (0-0.9); MONOCYTES % (AUTO) 6.2 % (2-12); NEUTROPHILS # (AUTO) 3.4 X10'3 (1.8-7.7); NEUTROPHILS % (AUTO) 52.4 % (42-75); PLATELET COUNT 276 X10'3 (140-440); RED CELL DISTRIBUTION WIDTH 13.9 % (11.5-14.5); WHITE BLOOD COUNT 6.4 X10'3 (4.5-11.0)
[2021-02-16 13:24] LABS: UA COLLECTION TYPE CLN CATCH MIDSTREAM
[2021-02-16 13:26] LABS: BACTERIA,URINE FEW /HPF (Neg); MUCUS STRANDS NONE SEEN /LPF (Neg); RBC,URINE 0-2 /HPF (0-2); SQUAMOUS EPITHELIAL CELL,UR FEW /LPF (FEW); WBC,URINE 0-4 /HPF (0-4); YEAST FEW /HPF (NEGATIVE)
[2021-02-16 13:36] LABS: ALANINE AMINOTRANSFERASE 38 U/L (12-78); ALBUMIN 3.7 G/DL (3.4-5.0); ALBUMIN/GLOBULIN RATIO 0.9 (1.1-1.5); ALKALINE PHOSPHATASE 124 IU/L (46-116); ANION GAP 9 (8-16); ASPARTATE AMINO TRANSFERASE 15 U/L (10-37); BILIRUBIN,TOTAL 0.5 MG/DL (0.1-1.0); BLOOD UREA NITROGEN 13 MG/DL (7-18); BUN/CREATININE RATIO 14.6 (6.6-38.0); CHLORIDE 106 MMOL/L (99-107); CREATININE 0.89 MG/DL (0.40-0.90); GLUCOSE 301 MG/DL (70-104); POTASSIUM 4.4 MMOL/L (3.5-5.1); SODIUM 141 MMOL/L (135-145); TOTAL CARBON DIOXIDE 26.3 MMOL/L (24-32); TOTAL PROTEIN 7.7 G/DL (6.4-8.2); eGFR 68 ML/MIN
[2021-02-16 13:42] LABS: TROPONIN I < 0.04 NG/ML (0.0-0.05)
[2021-02-16] MEDS ORDERED: FAMO-128 PO (14:22)
[2021-02-16] MEDS ORDERED: ONDA4TAB6 PO (14:22)
[2021-02-16] MEDS ORDERED: famotidine 20mg tablet PO ONE (14:25)
[2021-02-16] MEDS ORDERED: ondansetron 4mg rapidly disintigrating tab PO ONE (14:25)
[2021-02-16 14:52] VITALS: BP 110/71
== END 2021-02-16 14:56 | disposition home or self-care (01) ==
LOC: ER 12:31
DX: R53.81 Other malaise (principal); R11.0 Nausea; R10.9 Unspecified abdominal pain; R51.9 Headache, unspecified; E78.00 Pure hypercholesterolemia, unspecified; I10 Essential (primary) hypertension; J45.909 Unspecified asthma, uncomplicated; E11.9 Type 2 diabetes mellitus without complications; M79.7 Fibromyalgia; Z90.89 Acquired absence of other organs; Z90.710 Acquired absence of both cervix and uterus; Z90.49 Acquired absence of other specified parts of digestive tract; Z88.6 Allergy status to analgesic agent; Z91.018 Allergy to other foods
CPT/HCPCS: 36415; 80053; 81001; 84484; 85025; 93005; 99284

== ENCOUNTER 2022-06-08 14:21 | Emergency (ER) | payer MEDICARE, MEDICAID ==
[~2022-06-08] VITALS: Ht 167.6 cm; Wt 96.4 kg
[~2022-06-08 14:21] MED LIST changes: +FAMO-128 PO
[2022-06-08 15:33] VITALS: BP 130/88
[2022-06-08 16:07] LABS: COLOR,URINE YELLOW (Yellow); GLUCOSE, URINE >=1000 mg/dl (Neg); KETONES,URINE TRACE mg/dl (Neg); LEUKOCYTE ESTERASE ,URINE NEGATIVE (Neg); NITRITES, URINE POSITIVE (Neg); OCCULT BLOOD,URINE NEGATIVE (Neg); PROTEIN,URINE NEGATIVE (Neg); UROBILINOGEN,URINE 0.2 E.U/dL (0.2-1.0)
[2022-06-08 16:19] LABS: UA COLLECTION TYPE CLN CATCH MIDSTREAM
[2022-06-08 16:20] LABS: CLARITY,URINE CLOUDY (Clear)
[2022-06-08 16:22] LABS: BACTERIA,URINE 2+ /HPF (Neg); RBC,URINE NONE SEEN /HPF (0-2); SQUAMOUS EPITHELIAL CELL,UR FEW /LPF (FEW); WBC,URINE 30-50 /HPF (0-4)
[2022-06-08 16:23] LABS: MUCUS STRANDS NONE SEEN /LPF (Neg)
[2022-06-08] MEDS ORDERED: nitrofuran monohydrate/nitrofuran macrocrysal 100 MG (MacroBID) capsule PO ONE (16:30)
[2022-06-08] MEDS ORDERED: NITR100C6 PO (16:32)
== END 2022-06-08 16:41 | disposition home or self-care (01) ==
LOC: ER 14:21
DX: N39.0 Urinary tract infection, site not specified (principal); R10.30 Lower abdominal pain, unspecified; E78.00 Pure hypercholesterolemia, unspecified; I10 Essential (primary) hypertension; J45.909 Unspecified asthma, uncomplicated; E11.9 Type 2 diabetes mellitus without complications; Z90.89 Acquired absence of other organs; Z90.49 Acquired absence of other specified parts of digestive tract; Z90.710 Acquired absence of both cervix and uterus; Z98.51 Tubal ligation status; Z98.890 Other specified postprocedural states; Z88.5 Allergy status to narcotic agent; Z88.8 Allergy status to other drugs, medicaments and biological substances; Z79.899 Other long term (current) drug therapy
CPT/HCPCS: 81001; 87077; 87088; 87186; 99283

== ENCOUNTER 2022-07-10 13:33 | Emergency (ER) | payer MEDICARE, MEDICAID ==
[~2022-07-10] VITALS: Ht 167.6 cm; Wt 93.2 kg
[~2022-07-10 13:33] MED LIST changes: +NITR100C6 PO
[2022-07-10 14:26] VITALS: BP 143/94
[2022-07-10] MEDS ORDERED: TETanus/Pertussis (Acell)/Diphther VAC/PF (Tdap-Adult) 0.5ml syringe IMVAC ONE (16:20)
[2022-07-10] MEDS ORDERED: LIDOcaine 1% w/EPI 1:100,000 30ml vial (MDV) IJ ONE (16:20)
[2022-07-10] MEDS ORDERED: LIDOcaine/epinephrine/tetracaine TOPICAL sol 3 ML syringe TOP ONE ×2 (16:20→17:32)
[2022-07-10] MEDS ORDERED: AMOX500C2 PO (18:06)
[2022-07-10] MEDS ORDERED: HYDR-3965 PO (18:06)
[2022-07-10] MEDS ORDERED: HYDROcodone/acetaminophen 10/325mg tab PO ONE (18:10)
== END 2022-07-10 19:15 | disposition home or self-care (01) ==
LOC: ER 13:33
DX: S01.511A Laceration without foreign body of lip, initial encounter (principal); S03.2XXA Dislocation of tooth, initial encounter; I10 Essential (primary) hypertension; J45.909 Unspecified asthma, uncomplicated; E78.00 Pure hypercholesterolemia, unspecified; Z90.49 Acquired absence of other specified parts of digestive tract; Z98.890 Other specified postprocedural states; Z88.5 Allergy status to narcotic agent; Z79.899 Other long term (current) drug therapy; W22.8XXA Striking against or struck by other objects, initial encounter; Y93.89 Activity, other specified; Y92.89 Other specified places as the place of occurrence of the external cause; Y99.8 Other external cause status
CPT/HCPCS: 40650; 90471; 90715; 99284; J3490; A6449

== ENCOUNTER 2022-07-17 06:50 | Emergency (ER) | payer MEDICARE, MEDICAID ==
[~2022-07-17] VITALS: Ht 167.6 cm; Wt 93.2 kg
[~2022-07-17 06:50] MED LIST changes: +AMOX500C2 PO; +HYDR-3965 PO
[2022-07-17 06:57] VITALS: BP 117/86
--- NOTE | 2022-07-17 09:36 | NUR ---
suture removed per md order
== END 2022-07-17 10:03 | disposition home or self-care (01) ==
LOC: ER 06:51
DX: S01.511D Laceration without foreign body of lip, subsequent encounter (principal); Z48.00 Encounter for change or removal of nonsurgical wound dressing; I10 Essential (primary) hypertension; J45.909 Unspecified asthma, uncomplicated; E78.00 Pure hypercholesterolemia, unspecified; Z90.49 Acquired absence of other specified parts of digestive tract; Z79.899 Other long term (current) drug therapy; Z88.5 Allergy status to narcotic agent; Z79.1 Long term (current) use of non-steroidal anti-inflammatories (NSAID); Z79.2 Long term (current) use of antibiotics; X58.XXXD Exposure to other specified factors, subsequent encounter
CPT/HCPCS: 99281

== ENCOUNTER 2023-01-08 10:36 | Emergency (ER) | payer MEDICARE, MEDICAID ==
[~2023-01-08] VITALS: Ht 167.6 cm; Wt 92.0 kg
[~2023-01-08 10:36] MED LIST changes: -AMOX500C2 PO; -HYDR-3965 PO
[2023-01-08 10:43] VITALS: BP 127/83
--- NOTE | 2023-01-08 11:01 | NUR ---
Pt in FT1. Pt c/o cold symptoms. X1 week. Pt educated to POC. Pt in agreement. Pending providers eval and treatment.
== END 2023-01-08 11:37 | disposition home or self-care (01) ==
LOC: ER 10:36
DX: R53.83 Other fatigue (principal); R52 Pain, unspecified; I10 Essential (primary) hypertension; E78.00 Pure hypercholesterolemia, unspecified; J45.909 Unspecified asthma, uncomplicated; E11.9 Type 2 diabetes mellitus without complications; Z88.5 Allergy status to narcotic agent; Z98.890 Other specified postprocedural states; Z90.49 Acquired absence of other specified parts of digestive tract
CPT/HCPCS: 99281

== ENCOUNTER 2023-02-24 14:08 | Emergency (ER) | payer MEDICARE, MEDICAID ==
[~2023-02-24] VITALS: Ht 167.6 cm; Wt 87.0 kg
[2023-02-24 14:31] VITALS: BP 125/87
[2023-02-24 14:50] LABS: BASOPHILS # (AUTO) 0.1 X10'3 (0-0.2); BASOPHILS % (AUTO) 1.1 % (0-1); EOSINOPHILS # (AUTO) 0.3 X10'3 (0-0.9); EOSINOPHILS % (AUTO) 3.7 % (0-6); HEMATOCRIT 44.1 % (35.0-45.0); HEMOGLOBIN 14.8 g/dl (12.0-16.0); LYMPHOCYTES # (AUTO) 2.4 X10'3 (1.1-4.8); LYMPHOCYTES % (AUTO) 32.4 % (21-51); MEAN CORPUSCULAR HEMOGLOBIN 30.9 PG (27.0-31.0); MEAN CORPUSCULAR HGB CONC 33.6 g/dL (33.0-36.5); MEAN CORPUSCULAR VOLUME 92.1 FL (78-98); MONOCYTES # (AUTO) 0.5 X10'3 (0-0.9); MONOCYTES % (AUTO) 7.3 % (2-12); NEUTROPHILS # (AUTO) 4.1 X10'3 (1.8-7.7); NEUTROPHILS % (AUTO) 55.5 % (42-75); PLATELET COUNT 245 X10'3 (140-440); RED BLOOD COUNT 4.79 X10'6 (4.20-5.60); RED CELL DISTRIBUTION WIDTH 13.8 % (11.5-14.5); WHITE BLOOD COUNT 7.4 X10'3 (4.5-11.0)
[2023-02-24 14:51] LABS: URINE HCG NEGATIVE (NEG)
[2023-02-24 14:53] LABS: CLARITY,URINE CLEAR (Clear); COLOR,URINE YELLOW (Yellow); GLUCOSE, URINE >=1000 mg/dl (Neg); KETONES,URINE TRACE mg/dl (Neg); LEUKOCYTE ESTERASE ,URINE NEGATIVE (Neg); NITRITES, URINE NEGATIVE (Neg); OCCULT BLOOD,URINE NEGATIVE (Neg); PH,URINE 5.5 (4.8-8.0); PROTEIN,URINE NEGATIVE (Neg)
[2023-02-24 14:57] LABS: UA COLLECTION TYPE CLN CATCH MIDSTREAM
[2023-02-24 15:01] LABS: SQUAMOUS EPITHELIAL CELL,UR MODERATE /LPF (FEW)
[2023-02-24 15:03] LABS: BACTERIA,URINE FEW /HPF (Neg); RBC,URINE 0-2 /HPF (0-2); WBC,URINE 0-4 /HPF (0-4)
[2023-02-24 15:05] LABS: ALANINE AMINOTRANSFERASE 56 U/L (12-78); ALBUMIN 4.1 G/DL (3.4-5.0); ALBUMIN/GLOBULIN RATIO 1.1 (1.1-1.5); ALKALINE PHOSPHATASE 110 IU/L (46-116); ANION GAP 7 (8-16); ASPARTATE AMINO TRANSFERASE 20 U/L (10-37); BILIRUBIN,TOTAL 0.6 MG/DL (0.1-1.0); BLOOD UREA NITROGEN 15 MG/DL (7-18); BUN/CREATININE RATIO 16.5 (10.0-20.0); CALCIUM 9.5 MG/DL (8.5-10.1); CHLORIDE 103 MMOL/L (99-107); CREATININE 0.91 MG/DL (0.40-0.90); GLUCOSE 220 MG/DL (70-104); LIPASE 63 U/L (73-393); POTASSIUM 3.5 MMOL/L (3.5-5.1); SODIUM 141 MMOL/L (135-145); TOTAL CARBON DIOXIDE 30.6 MMOL/L (24-32); TOTAL PROTEIN 7.8 G/DL (6.4-8.2); eGFR 65 ML/MIN
[2023-02-24] MEDS ORDERED: HYDROcodone/acetaminophen 5mg/325mg tablet PO ONE (15:25)
[2023-02-24] MEDS ORDERED: HYDR-3965 PO ×2 (17:29→17:35)
[2023-02-24] MEDS ORDERED: CEPH-585 PO ×2 (17:29→17:35)
[2023-02-24] MEDS ORDERED: ONDA4TAB12 PO (17:35)
== END 2023-02-24 17:49 | disposition home or self-care (01) ==
LOC: ER 14:10
DX: K42.9 Umbilical hernia without obstruction or gangrene (principal); R10.30 Lower abdominal pain, unspecified; R19.7 Diarrhea, unspecified; E78.00 Pure hypercholesterolemia, unspecified; I10 Essential (primary) hypertension; J45.909 Unspecified asthma, uncomplicated; E11.9 Type 2 diabetes mellitus without complications; Z88.8 Allergy status to other drugs, medicaments and biological substances; Z90.710 Acquired absence of both cervix and uterus; Z90.49 Acquired absence of other specified parts of digestive tract; Z98.51 Tubal ligation status
CPT/HCPCS: 36415; 74176; 80053; 81001; 81025; 83690; 85025; 99284

== ENCOUNTER 2023-04-30 10:28 | Emergency (ER) | payer MEDICARE, MEDICAID ==
[~2023-04-30] VITALS: Ht 167.6 cm; Wt 91.8 kg
[~2023-04-30 10:28] MED LIST changes: +HYDR-3965 PO
[2023-04-30 11:13] VITALS: BP 128/86; PULSE 87; RESP 16; O2SAT 98
[2023-04-30] MEDS ORDERED: NAPR500T6 PO (11:44)
== END 2023-04-30 11:53 | disposition home or self-care (01) ==
LOC: ER 10:29
DX: M25.561 Pain in right knee (principal); M25.562 Pain in left knee; E78.00 Pure hypercholesterolemia, unspecified; I10 Essential (primary) hypertension; J45.909 Unspecified asthma, uncomplicated; E11.9 Type 2 diabetes mellitus without complications; Z88.5 Allergy status to narcotic agent; Z79.1 Long term (current) use of non-steroidal anti-inflammatories (NSAID); Z79.899 Other long term (current) drug therapy; Z98.890 Other specified postprocedural states; Z90.49 Acquired absence of other specified parts of digestive tract; Z90.710 Acquired absence of both cervix and uterus; Z98.51 Tubal ligation status
CPT/HCPCS: 99282

== ENCOUNTER 2023-08-17 14:55 | Emergency (ER) | payer MEDICARE, MEDICAID ==
[~2023-08-17] VITALS: Ht 167.6 cm; Wt 89.3 kg
[~2023-08-17 14:55] MED LIST changes: +NAPR500T6 PO
[2023-08-17] MEDS ORDERED: acetaminophen 325mg tablet PO STA (15:52)
[2023-08-17] MEDS ORDERED: normal saline 1000ML IV soln IV ONE (15:55)
[2023-08-17 16:54] LABS: BILIRUBIN,URINE NEGATIVE (Neg); CLARITY,URINE CLEAR (Clear); COLOR,URINE YELLOW (Yellow); GLUCOSE, URINE 500 mg/dl (Neg); KETONES,URINE NEGATIVE (Neg); LEUKOCYTE ESTERASE ,URINE NEGATIVE (Neg); NITRITES, URINE NEGATIVE (Neg); OCCULT BLOOD,URINE TRACE-INTACT (Neg); PROTEIN,URINE NEGATIVE (Neg)
[2023-08-17 17:07] LABS: UA COLLECTION TYPE CLN CATCH MIDSTREAM
[2023-08-17 17:11] LABS: BACTERIA,URINE FEW /HPF (Neg); RBC,URINE 0-2 /HPF (0-2); SQUAMOUS EPITHELIAL CELL,UR MODERATE /LPF (FEW); WBC,URINE 0-4 /HPF (0-4)
[2023-08-17 17:55] LABS: HEMOGLOBIN 14.3 g/dl (12.0-16.0); MEAN CORPUSCULAR HEMOGLOBIN 31.1 PG (27.0-31.0); PLATELET COUNT 162 X10'3 (140-440)
[2023-08-17 17:57] LABS: BASOPHILS % (AUTO) 0.4 % (0-1); EOSINOPHILS # (AUTO) 0.2 X10'3 (0-0.9); EOSINOPHILS % (AUTO) 5.8 % (0-6); HEMATOCRIT 42.1 % (35.0-45.0); LYMPHOCYTES # (AUTO) 0.3 X10'3 (1.1-4.8); LYMPHOCYTES % (AUTO) 10.7 % (21-51); MEAN CORPUSCULAR VOLUME 91.6 FL (78-98); MEAN PLATELET VOLUME 7.4 FL (7.4-10.4); MONOCYTES # (AUTO) 0.3 X10'3 (0-0.9); MONOCYTES % (AUTO) 9.5 % (2-12); NEUTROPHILS # (AUTO) 2.2 X10'3 (1.8-7.7); NEUTROPHILS % (AUTO) 73.6 % (42-75); RED BLOOD COUNT 4.59 X10'6 (4.20-5.60); RED CELL DISTRIBUTION WIDTH 13.7 % (11.5-14.5)
[2023-08-17 18:09] LABS: ALANINE AMINOTRANSFERASE 34 U/L (12-78); ALBUMIN 3.6 G/DL (3.4-5.0); ALKALINE PHOSPHATASE 112 IU/L (46-116); ANION GAP 6 (8-16); ASPARTATE AMINO TRANSFERASE 17 U/L (10-37); BILIRUBIN,TOTAL 0.4 MG/DL (0.1-1.0); BLOOD UREA NITROGEN 11 MG/DL (7-18); BUN/CREATININE RATIO 14.9 (10.0-20.0); CALCIUM 8.5 MG/DL (8.5-10.1); CHLORIDE 103 MMOL/L (99-107); CREATININE 0.74 MG/DL (0.40-0.90); GLUCOSE 100 MG/DL (70-104); MAGNESIUM 2.2 MG/DL (1.5-2.4); POTASSIUM 3.6 MMOL/L (3.5-5.1); SODIUM 137 MMOL/L (135-145); TOTAL CARBON DIOXIDE 27.6 MMOL/L (24-32); TOTAL PROTEIN 7.3 G/DL (6.4-8.2); eCRCL 84 ML/MIN; eGFR 83 ML/MIN
[2023-08-17 18:19] LABS: PLATELET ESTIMATE NORMAL; TOTAL CELLS COUNTED 100
[2023-08-17 19:46] VITALS: BP 121/64; PULSE 75; RESP 17; TEMP 99.6; O2SAT 97
== END 2023-08-17 19:49 | disposition home or self-care (01) ==
LOC: ER 14:55
DX: B34.9 Viral infection, unspecified (principal); Z20.822 Contact with and (suspected) exposure to COVID-19; R50.9 Fever, unspecified; E78.00 Pure hypercholesterolemia, unspecified; I10 Essential (primary) hypertension; J45.909 Unspecified asthma, uncomplicated; Z88.5 Allergy status to narcotic agent; Z79.899 Other long term (current) drug therapy; Z79.1 Long term (current) use of non-steroidal anti-inflammatories (NSAID); Z90.710 Acquired absence of both cervix and uterus; Z98.51 Tubal ligation status
CPT/HCPCS: 36415; 71045; 74176; 80053; 81001; 83605; 83735; 84145; 85007; 85025; 87040; 87502; 87503; 87811; 96360; 99284; J7030

== ENCOUNTER 2023-09-04 11:21 | Emergency (ER) | payer MEDICARE, MEDICAID ==
[~2023-09-04] VITALS: Ht 167.6 cm; Wt 88.6 kg
[2023-09-04 11:26] VITALS: TEMP 97.8
[2023-09-04] MEDS ORDERED: ketorolac trometh. 30mg/ml inj. IV ONE (12:10)
[2023-09-04] MEDS ORDERED: HYDROmorphone 1 mg/ml syringe IV ONE (12:10)
[2023-09-04] MEDS ORDERED: famotidine/PF 10 mg/ml inj IV ONE (12:10)
[2023-09-04] MEDS ORDERED: metoclopramide 5 mg/ml inj IV ONE (12:10)
[2023-09-04 12:19] LABS: EOSINOPHILS # (AUTO) 0.1 X10'3 (0-0.9); EOSINOPHILS % (AUTO) 1.9 % (0-6); HEMATOCRIT 40.6 % (35.0-45.0); HEMOGLOBIN 13.7 g/dl (12.0-16.0); MEAN CORPUSCULAR HGB CONC 33.7 g/dL (33.0-36.5); MONOCYTES # (AUTO) 0.4 X10'3 (0-0.9); NEUTROPHILS # (AUTO) 2.6 X10'3 (1.8-7.7); RED BLOOD COUNT 4.42 X10'6 (4.20-5.60)
[2023-09-04 12:21] LABS: BASOPHILS # (AUTO) 0.1 X10'3 (0-0.2); BASOPHILS % (AUTO) 2.6 % (0-1); MEAN PLATELET VOLUME 7.5 FL (7.4-10.4); NEUTROPHILS % (AUTO) 49.5 % (42-75); PLATELET COUNT 275 X10'3 (140-440); RED CELL DISTRIBUTION WIDTH 13.6 % (11.5-14.5); WHITE BLOOD COUNT 5.2 X10'3 (4.5-11.0)
[2023-09-04 12:35] LABS: ALANINE AMINOTRANSFERASE 33 U/L (12-78); ALBUMIN 3.6 G/DL (3.4-5.0); ALBUMIN/GLOBULIN RATIO 0.9 (1.1-1.5); ALKALINE PHOSPHATASE 128 IU/L (46-116); ANION GAP 8 (8-16); ASPARTATE AMINO TRANSFERASE 17 U/L (10-37); BILIRUBIN,TOTAL 0.3 MG/DL (0.1-1.0); BLOOD UREA NITROGEN 9 MG/DL (7-18); BUN/CREATININE RATIO 14.3 (10.0-20.0); CHLORIDE 104 MMOL/L (99-107); CREATININE 0.63 MG/DL (0.40-0.90); GLUCOSE 147 MG/DL (70-104); POTASSIUM 3.8 MMOL/L (3.5-5.1); SODIUM 143 MMOL/L (135-145); TOTAL CARBON DIOXIDE 31.2 MMOL/L (24-32); TOTAL PROTEIN 7.5 G/DL (6.4-8.2); eCRCL 99 ML/MIN; eGFR > 90 ML/MIN
[2023-09-04 12:41] LABS: PRO BRAIN NATRIURETIC PEPTIDE < 30 PG/ML (0-125)
[2023-09-04 13:56] VITALS: BP 123/79; PULSE 98; RESP 16; O2SAT 96
== END 2023-09-04 13:56 | disposition home or self-care (01) ==
LOC: ER 11:22
DX: R07.9 Chest pain, unspecified (principal); J45.909 Unspecified asthma, uncomplicated; J18.9 Pneumonia, unspecified organism
CPT/HCPCS: 36415; 71045; 80053; 83880; 84484; 85025; 93005; 96374; 96375; 99285; J1170; J1885; J2765; J3490

== ENCOUNTER 2024-01-22 14:00 | Emergency (ER) | payer MEDICARE, MEDICAID ==
[~2024-01-22] VITALS: Ht 167.6 cm; Wt 98.7 kg
[2024-01-22] MEDS ORDERED: ATOR20TA66 PO (14:16)
[2024-01-22] MEDS ORDERED: PREG75CA76 PO (14:16)
[2024-01-22] MEDS ORDERED: EMPA25TA PO (14:16)
[2024-01-22] MEDS ORDERED: GLIP10TA11 PO (14:16)
[2024-01-22] MEDS ORDERED: DULO60CA65 PO (14:16)
[2024-01-22 14:55] LABS: URINE HCG NEGATIVE (NEG)
[2024-01-22 14:57] LABS: BILIRUBIN,URINE NEGATIVE (Neg); CLARITY,URINE CLEAR (Clear); COLOR,URINE YELLOW (Yellow); GLUCOSE, URINE >=1000 mg/dl (Neg); KETONES,URINE NEGATIVE (Neg); LEUKOCYTE ESTERASE ,URINE TRACE (Neg); NITRITES, URINE NEGATIVE (Neg); OCCULT BLOOD,URINE TRACE-INTACT (Neg); PROTEIN,URINE NEGATIVE (Neg); UROBILINOGEN,URINE 0.2 E.U/dL (0.2-1.0)
[2024-01-22 15:03] LABS: UA COLLECTION TYPE CLN CATCH MIDSTREAM
[2024-01-22 15:04] LABS: BACTERIA,URINE FEW /HPF (Neg); MUCUS STRANDS FEW /LPF (Neg); RBC,URINE 0-2 /HPF (0-2); SQUAMOUS EPITHELIAL CELL,UR FEW /LPF (FEW); WBC,URINE 30-50 /HPF (0-4)
[2024-01-22 16:43] LABS: BASOPHILS # (AUTO) 0.1 X10'3 (0-0.2); BASOPHILS % (AUTO) 0.9 % (0-1); EOSINOPHILS # (AUTO) 0.4 X10'3 (0-0.9); EOSINOPHILS % (AUTO) 5.7 % (0-6); HEMATOCRIT 40.5 % (35.0-45.0); HEMOGLOBIN 13.7 g/dl (12.0-16.0); LYMPHOCYTES # (AUTO) 2.3 X10'3 (1.1-4.8); LYMPHOCYTES % (AUTO) 34.8 % (21-51); MEAN CORPUSCULAR HEMOGLOBIN 30.5 PG (27.0-31.0); MEAN CORPUSCULAR HGB CONC 33.8 g/dL (33.0-36.5); MEAN CORPUSCULAR VOLUME 90.3 FL (78-98); MEAN PLATELET VOLUME 8.2 FL (7.4-10.4); MONOCYTES # (AUTO) 0.3 X10'3 (0-0.9); NEUTROPHILS # (AUTO) 3.5 X10'3 (1.8-7.7); NEUTROPHILS % (AUTO) 53.6 % (42-75); PLATELET COUNT 233 X10'3 (140-440); RED BLOOD COUNT 4.49 X10'6 (4.20-5.60); RED CELL DISTRIBUTION WIDTH 14.5 % (11.5-14.5); WHITE BLOOD COUNT 6.5 X10'3 (4.5-11.0)
[2024-01-22] MEDS: ketorolac trometh. 30mg/ml inj. IV ONE (16:54)
[2024-01-22] MEDS: normal saline 1000ml 1,000 ML IV ONE (16:55)
[2024-01-22 17:06] LABS: ALANINE AMINOTRANSFERASE 24 U/L (12-78); ALBUMIN 3.7 G/DL (3.4-5.0); ALBUMIN/GLOBULIN RATIO 0.9 (1.1-1.5); ALKALINE PHOSPHATASE 156 IU/L (46-116); ANION GAP 6 (8-16); ASPARTATE AMINO TRANSFERASE 7 U/L (10-37); BILIRUBIN,TOTAL 0.4 MG/DL (0.1-1.0); BLOOD UREA NITROGEN 13 MG/DL (7-18); BUN/CREATININE RATIO 17.6 (10.0-20.0); CALCIUM 9.1 MG/DL (8.5-10.1); CHLORIDE 108 MMOL/L (99-107); CREATININE 0.74 MG/DL (0.40-0.90); GLUCOSE 189 MG/DL (70-104); POTASSIUM 3.8 MMOL/L (3.5-5.1); SODIUM 143 MMOL/L (135-145); TOTAL CARBON DIOXIDE 28.6 MMOL/L (24-32); TOTAL PROTEIN 7.6 G/DL (6.4-8.2); eCRCL 84 ML/MIN; eGFR 83 ML/MIN
[2024-01-22] MEDS ORDERED: CEPH250T PO (17:22)
[2024-01-22] MEDS: CefTRIAXone/D5W-Rocephin 1gm 50 ML IV ONE (17:31)
[2024-01-22 18:24] VITALS: BP 135/90; PULSE 85; RESP 16; TEMP 97.4; O2SAT 97
== END 2024-01-22 18:26 | disposition home or self-care (01) ==
LOC: ER 14:01
DX: N30.90 Cystitis, unspecified without hematuria (principal); I10 Essential (primary) hypertension; E78.00 Pure hypercholesterolemia, unspecified; J45.909 Unspecified asthma, uncomplicated; E11.9 Type 2 diabetes mellitus without complications; M19.90 Unspecified osteoarthritis, unspecified site; Z88.5 Allergy status to narcotic agent; Z79.2 Long term (current) use of antibiotics; Z79.899 Other long term (current) drug therapy; Z90.49 Acquired absence of other specified parts of digestive tract; Z90.710 Acquired absence of both cervix and uterus; Z98.51 Tubal ligation status
CPT/HCPCS: 36415; 74176; 80053; 81001; 81025; 83605; 85025; 87040; 87088; 96361; 96365; 96375; 99285; J0696; J1885; J7030; 87077; 87186

== ENCOUNTER 2025-02-05 10:08 | Emergency (ER) | payer MEDICARE, OTHER ==
[~2025-02-05] VITALS: Ht 167.6 cm; Wt 97.5 kg
[~2025-02-05 10:08] MED LIST changes: +ATOR20TA66 PO; -DEXA6TAB6 PO; +DULO60CA65 PO; +EMPA25TA PO; -FAMO-128 PO; -GABA-530 PO; -GLIP10TA11 PO; +GLIP10TA18 PO; -GUAI120015 PO; -HYDR-3965 PO; -HYDR-4383 PO; -IBUP-1985 PO; -MEDR5TAB PO; -METF500T PO; -NAPR500T6 PO; -NITR100C6 PO; +ONDA-243 PO; -ONDA4TAB12 PO; -PANT-47 PO; +PREG75CA76 PO; -SUCR1TAB PO
--- NOTE | 2025-02-05 10:47 | Physician Documentation ---
History of Present Illness ~ Chief Complaint: Leg Pain Stated Complaint: PAIN ON R SIDE OF R FOOT Time Seen by MD: 10:17 [facility] of Arrival: POV, Ambulatory HPI 54-year-old female presents to the ED with a complaint of one month of increasing leg pain on the right side. She states she had has no history of blood clots but reports pain in the posterior aspect of her knee and on her right foot which has in increased in severity. Denies any shortness of breath ,denies any fevers Day of Onset: February 05, 2025 Tetanus witin 5 years: No Medication Reconciliation Allergies: Coded Allergies: morphine (Verified Allergy, Mild, 02/05/25) Scheduled Atorvastatin Calcium (Atorvastatin Calcium), 1 TAB PO DAILY, (Reported) Duloxetine HCl (Duloxetine HCl), 1 CAP PO DAILY, (Reported) Empagliflozin (Jardiance), 1 TAB PO QAM, (Reported) Famotidine (Pepcid), 1 TAB PO DAILY Glipizide (Glipizide), 1 TAB PO Q12H, (Reported) Ondansetron Hcl (Zofran), 1 TAB PO Q12H PRN Pregabalin (Pregabalin), 1 CAP PO TID, (Reported) Scheduled PRN ONDANSETRON ODT 4mg tablet (Ondansetron Odt), 1 TABLET PO Q6H PRN for nausea/vomiting Past Medical History Past Medical History: High Cholesterol, Hypertension, Asthma, Sleep Apnea, *GI/HEPATOBILIARY*, Hernia, Diabetes, *MUSCULOSKELETAL*, Arthritis, Chronic Back Pain, Fibromyalgia Past Surgical History: abdominal surgery, appendectomy, cholecystectomy, hysterectomy, tubal ligation, other Other Past Surgical History: hernia repair, bladder sling Other Past Family History: Noncontributory Alcohol Use: None Drug Use: none Lives with: Spouse Lives In: Home Occupation: employed Physical Exam Vital Signs: Temperature: 97.0, Source: Temporal, Heart Rate: 73, Respiratory Rate: 18, BP: 162/81, Pulse Oximetry: 97, Weight: 97.450 Physical Exam General: Alert, no apparent distress. HEENT: PERRL, EOMI, no injection, moist mucous membranes. Extremities: Normal range of motion, no deformity. It is swollen the lateral aspect of the right ankle he had of Homans no erythema no changes in skin temperature Skin: Normal color, warm and dry. No edema, no ecchymosis. Progress Results/Orders Results/Orders Orders - TREY SANTANA NP Vl Venous (02/05/25 10:46) Completed Orders - TREY SANTANA NP Vl Venous (02/05/25 10:46) Vital Signs 02/05/25 02/05/25 02/05/25 10:13 10:35 12:12 Temp 97.0 97.0 Pulse 73 85 Resp 18 18 18 B/P (MAP) 162/81 115/81 Pulse Ox 97 100 Medical Decision Making Findings Initially I was concerned for DVT in the right lower extremity however vascular ultrasound indicated that there was good flow no signs of any thrombus. Ultrasound indicated that there was no sign of Townsend's cyst Advised patient to follow up in the outpatient setting or return for any worsening symptoms Knee Diff Dx:Considerations: Include: Abrasion, Arthritis, Contusion, DJD, Fracture-femur, Fracture-fibula, Fracture-patella, Fracture-tibia, Gout, Hematoma, Laceration, Meniscus injury, Neurovascular injury, Open fracture, Rheumatoid arthritis, Septic, Sprain, Sprain-MCL, Sprain-LCL, Sprain-ACL, Sprain-PCL, Other Ankle Diff Dx:Considerations: Include: Abrasion, Arthritis, Contusion, DJD, Fracture-metatarsal, Fracture-fibula, Fracture-tarsal, Fracture-tibia, Gout, Hematoma, Laceration, Malunion, Neurovascular injury, Nonunion, Open fracture, Osteomyelitis, Rheumatoid arthritis, Sprain, Septic, Ulcer, Other Departure Disposition: 01 HOME / SELF CARE / HOMELESS Impression: Primary Impression: Leg cramps Discharge Instructions: Contusion, [id number], Muscle Strain, [id number] Referrals: NO PRIMARY CARE PROVIDER (PCP) Signature Scribe Signature: h Attestation: The note accurately reflects work and decisions made by me.Trey Santnaa - JOSEPH 18:07 TREY SANTANA NP February 05, 2025 10:47
--- NOTE | 2025-02-05 12:02 | VASCULAR REPORT ---
Lower extremity venous duplex Clinical History: Pain. Comparison: None Findings: Duplex Doppler evaluation of the deep venous systems of both lower extremities from the common femora l veins to the popliteal veins including color Doppler and spectral/pulsed waveform analysis was perf ormed. RIGHT SIDE: The common femoral vein demonstrates appropriate compressibility and waveform variability. There is compressibility/patency of the great saphenous vein at the proximal thigh. The femoral vein demonstrates appropriate compressibility and waveform variability. The deep femoral vein demonstrates appropriate compressibility and waveform variability. The popliteal vein demonstrates appropriate compressibility and waveform variability. There is normal compressibility at the tibioperoneal trunk. Impression: 1. No deep venous thrombosis in the right lower extremity.
[2025-02-05 12:12] VITALS: BP 115/81; PULSE 85; RESP 18; TEMP 97; O2SAT 100
== END 2025-02-05 12:23 | disposition home or self-care (01) ==
LOC: ER 10:09
DX: R25.2 Cramp and spasm (principal); E11.9 Type 2 diabetes mellitus without complications; E78.00 Pure hypercholesterolemia, unspecified; G47.30 Sleep apnea, unspecified; I10 Essential (primary) hypertension; J45.909 Unspecified asthma, uncomplicated; M19.90 Unspecified osteoarthritis, unspecified site; M79.7 Fibromyalgia; Z88.5 Allergy status to narcotic agent; Z90.49 Acquired absence of other specified parts of digestive tract; Z90.710 Acquired absence of both cervix and uterus; Z98.890 Other specified postprocedural states
CPT/HCPCS: 93971; 99284

== ENCOUNTER 2025-03-13 13:34 | Emergency (ER) | payer MEDICARE, OTHER ==
[~2025-03-13] VITALS: Ht 167.6 cm; Wt 92.3 kg
[2025-03-13 13:50] VITALS: TEMP 97.8
--- NOTE | 2025-03-13 14:18 | RADIOLOGY REPORT ---
CLINICAL INDICATION: ANKLE PAIN LEFT TECHNIQUE: 4 radiographic views of the left ankle were obtained. Comparison: None FINDINGS/IMPRESSION: Soft tissue swelling about the left ankle. Nondisplaced fracture of the distal left fibula. Small sowmya ntar calcaneal enthesophyte.
--- NOTE | 2025-03-13 14:19 | Physician Documentation ---
History of Present Illness ~ Chief Complaint: Ankle pain Stated Complaint: L ANKLE PAIN Time Seen by MD: 14:53 OK to notify your PCP?: Yes Primary Medical Doctor: ANTONIETA Source: patient Mode of Arrival: POV Exam Limitations: no limitations HPI 54-year-old female presents with left ankle pain and swelling since 10am this morning. She reports she was trying to grab something out of a trailer in the trailer proceeded to fall on her ankle. She is unable to bear any weight and her ankle is nick inward. She does have good CSM and faint pedal pulses. No medications taken prior to arrival for her pain. Tetanus witin 5 years: No Medication Reconciliation Allergies: Coded Allergies: morphine (Verified Allergy, Mild, 02/05/25) Scheduled Atorvastatin Calcium (Atorvastatin Calcium), 1 TAB PO DAILY, (Reported) Duloxetine HCl (Duloxetine HCl), 1 CAP PO DAILY, (Reported) Empagliflozin (Jardiance), 1 TAB PO QAM, (Reported) Famotidine (Pepcid), 1 TAB PO DAILY Glipizide (Glipizide), 1 TAB PO Q12H, (Reported) Ondansetron Hcl (Zofran), 1 TAB PO Q12H PRN Pregabalin (Pregabalin), 1 CAP PO TID, (Reported) Scheduled PRN ONDANSETRON ODT 4mg tablet (Ondansetron Odt), 1 TABLET PO Q6H PRN for nausea/vomiting Past Medical History Past Medical History: High Cholesterol, Hypertension, Asthma, Sleep Apnea, *GI/HEPATOBILIARY*, Hernia, Diabetes, *MUSCULOSKELETAL*, Arthritis, Chronic Back Pain, Fibromyalgia Past Surgical History: abdominal surgery, appendectomy, cholecystectomy, hysterectomy, tubal ligation, other Other Past Surgical History: hernia repair, bladder sling Other Past Family History: Noncontributory Alcohol Use: None Drug Use: none Lives with: Spouse Lives In: Home Occupation: employed Review of Systems All Other Systems at this time: Reviewed and Negative Physical Exam Vital Signs: RN Vital Signs have been reviewed: Yes, Temperature: 97.8, Source: Temporal, Heart Rate: 97, Respiratory Rate: 15, BP: 122/84, Pulse Oximetry: 97, Weight: 92.270 Pulse Oximetry Reflects: adequate oxygenation Physical Exam General: Alert, no distress. HEENT: No injection, moist mucous membranes. Neck: Full range of motion. Respiratory: No respiratory distress, equal chest rise and fall. Chest: No accessory muscle use. Cardiovascular: Regular rate and rhythm. Gastrointestinal: Nondistended. Extremities: Limited range motion of left ankle, deformity, edema and pain. Nonambulatory on that leg Neurologic: Oriented x4. Psychiatric: Normal mood and affect. Skin: Normal color, warm and dry. Progress Results/Orders Results/Orders Orders - WENCESLAO SANTANA VENDOR RELATIONSHIP MANAGER Ortho Orders (03/13/25 ) Medications Received in ER Medications (Trade) Dose Ordered Sig/Mike Route PRN Reason Start Time Stop Time Status Last Admin Dose Admin (Madison 10/325mg tab) 1 tab ONCE ONCE PO 03/13/25 14:20 03/13/25 14:31 DC 03/13/25 14:59 1 TAB Vital Signs 03/13/25 03/13/25 03/13/25 13:50 14:57 14:59 Temp 97.8 Pulse 97 80 Resp 15 16 18 B/P (MAP) 122/84 115/94 (101) Pulse Ox 97 98 Medical Decision Making Findings I was able to appreciate a nondisplaced fracture in the distal aspect of the left fibula. This patient states that she will be unable to stay off of her foot which limits my options as far as splint choices. Discussed this with her and she said that she would be able to wearing orthotic boot. I explained to her this is not ideal but maybe the only option to to keep her ankle immobilized. Departure Disposition: HOME / SELF CARE / HOMELESS Impression: Primary Impression: Fracture of bone Additional Impression: Fibula fracture Condition: Stable Discharge Instructions: Ankle Fracture Additional Instructions: I recommend that she follow up with the primary care because you do not have the appropriate splint on. You may need orthopedic consultation which you can obtain through your primary care Referrals: NO PRIMARY CARE PROVIDER (PCP) Prescriptions Hydrocodone Bit/Acetaminophen 5/325 MG (Madison 5/325 MG) 5 Mg/325 Mg Tablet 1 TAB PO Q6H PRN for pain, #14 TAB Prov: WENCESLAO SANTANA VENDOR RELATIONSHIP MANAGER 03/13/25 Additional Comment Medical Screen Exam This patient recieved a medical screening examination. After reviewing the individual's medical complaints with presenting symptoms and performing an appropriate physical examination, it was determined that no immediate life- threatening emergency medical condition is present. This individual is also not a women having contractions. Signature Scribe Signature: f Attestation: Scribed for Wenceslao Santana Np by Wenceslao Martinez NP . 03/13/25 15:11 MONICA HERNANDEZP Mar 13, 2025 14:19 WENCESLAO SANTANA NP Mar 13, 2025 14:58
[2025-03-13 14:57] VITALS: PULSE 80
[2025-03-13] MEDS: HYDROcodone/acetaminophen 10/325mg tab PO ONE (14:59)
[2025-03-13] MEDS ORDERED: HYDR-3965 PO (15:13)
[2025-03-13 15:16] VITALS: RESP 18
[2025-03-13 15:17] VITALS: BP 134/84; O2SAT 99
== END 2025-03-13 15:20 | disposition home or self-care (01) ==
LOC: ER 13:35
DX: S82.492A Other fracture of shaft of left fibula, initial encounter for closed fracture (principal); E11.9 Type 2 diabetes mellitus without complications; E78.00 Pure hypercholesterolemia, unspecified; I10 Essential (primary) hypertension; J45.909 Unspecified asthma, uncomplicated; M19.90 Unspecified osteoarthritis, unspecified site; G47.30 Sleep apnea, unspecified; M79.7 Fibromyalgia; Z98.890 Other specified postprocedural states; Z90.710 Acquired absence of both cervix and uterus; Z90.49 Acquired absence of other specified parts of digestive tract; Z88.5 Allergy status to narcotic agent; Z79.899 Other long term (current) drug therapy; X58.XXXA Exposure to other specified factors, initial encounter; Y93.89 Activity, other specified; Y92.89 Other specified places as the place of occurrence of the external cause; Y99.8 Other external cause status
CPT/HCPCS: 73610; 99284

== ENCOUNTER → 2025-04-12 | Day surgery (SDC) | payer MEDICARE, MEDICAID ==
[2025-04-06 12:49] LABS: LEUKOCYTE ESTERASE ,URINE NEGATIVE (Neg); NITRITES, URINE NEGATIVE (Neg); OCCULT BLOOD,URINE NEGATIVE (Neg)
[2025-04-06 12:51] LABS: MEAN PLATELET VOLUME 7.8 FL (7.4-10.4); PRE OP HEMATOCRIT 42.3 % (35.0-45.0); PRE OP HEMOGLOBIN 14.2 g/dL (12.0-16.0); PRE OP PLATELET COUNT 255 X10'3 (140-440); PRE OP WHITE BLOOD COUNT 6.3 10'3 (4.8-10.8); RED CELL DISTRIBUTION WIDTH 13.9 % (11.5-14.5)
[2025-04-06 13:00] LABS: UA COLLECTION TYPE CLN CATCH MIDSTREAM
[2025-04-06 13:01] LABS: MUCUS STRANDS FEW /LPF (Neg); SQUAMOUS EPITHELIAL CELL,UR FEW /LPF (FEW)
[2025-04-06 13:04] LABS: CREATININE 0.65 MG/DL (0.40-0.90); PRE OP ALT 35 U/L (30-65); PRE OP ANION GAP 9 (8-16); PRE OP AST 20 U/L (10-37); PRE OP BILIRUB, TOTAL 0.7 MG/DL (0.0-1.0); PRE OP GLUCOSE 104 MG/DL (70-104); PRE OP POTASSIUM 3.6 MMOL/L (3.4-5.1); PRE OP SODIUM 141 MMOL/L (135-145); TOTAL CARBON DIOXIDE 26.7 MMOL/L (24-32); eGFR > 90 ML/MIN
[2025-04-12] VITALS (10 sets, daily range): BP systolic 132–152; BP diastolic 77–94; PULSE 77–99; RESP 11–18; TEMP 98.4; O2SAT 93–100
[~2025-04-12] VITALS: Ht 167.6 cm; Wt 93.6 kg
[~2025-04-12] MED LIST changes: +0.9 % SODIUM CHLORIDE 10 ML VIAL ONE; +ALBU18HF2 INH; +BUPIVAcaine 2.5mg/ml inj 50ml vial (contains preservative) ONE; +DICL100G31 TOP; +DULO30CA52 PO; -DULO60CA65 PO; -FAMO40TA73 PO; -GLIP10TA18 PO; +HYDR-3973 PO; +HYDROmorphone/PF 0.2 MG/ML SYRINGE IV PRN; +IBUP-1985 PO; +LANTUS SUBCUT; +LIDOcaine 2% (20mg/ml) 5ml vial ONE; +MONT-40 PO; +ONDA-103 PO; -ONDA-243 PO; -ONDA4TAB6 PO; +PREG100C56 PO; -PREG75CA76 PO; +ROPIVAcaine 0.5% (5mg/ml) 30ml vial ONE; +TIRZ10PE SUBCUT; +TIZA4TAB11 PO; +bacitracin 15gm ointment TP ONE; +dexamethasone sod phosphate 4mg/ml inj. ONE; +ePHEDrine 50MG/ML INJ. ONE; +fentaNYL /PF 50mcg/ml 5ml ampule ONE; +fentaNYL/PF 50MCG/1 ML 2ML syringe IV PRN; +hydrALAZINE 20mg/ml inj. IV PRN; +labetalol 20mg/4ml (5mg/ml) syringe IV PRN; +midazolam 1 mg/ML 2ml injection ONE; +ondansetron/PF 4mg/2ml inj IV PRN; +ondansetron/PF 4mg/2ml inj ONE; +propofol inj 20 ML IV ONE; +ringers solution, lacted 1,000 ML IV SCH
[2025-04-12] MEDS: ceFAZolin 2gm/dext,iso 50mL 50 ML IV ONE (05:30)
[2025-04-12] MEDS: ringers solution, lacted 1,000 ML IV SCH (11:08)
[2025-04-12] MEDS: bacitracin 15gm ointment TP ONE (13:50)
[2025-04-12] MEDS: acetaminophen 1,000mg/100ml IV 100 ML IV PRN (14:58)
[2025-04-12] MEDS: HYDROmorphone/PF 0.2 MG/ML SYRINGE IV PRN (14:59)
[2025-04-12] MEDS: fentaNYL/PF 50MCG/1 ML 2ML syringe IV PRN (15:22)
== END | disposition home or self-care (01) ==
LOC: PAS 10:40
PROVIDERS: ATTEND Podiatrist Foot & Ankle Surgery
DX: S82.832A Other fracture of upper and lower end of left fibula, initial encounter for closed fracture (principal); M25.472 Effusion, left ankle; G89.18 Other acute postprocedural pain; F43.20 Adjustment disorder, unspecified; M19.072 Primary osteoarthritis, left ankle and foot; E78.00 Pure hypercholesterolemia, unspecified; E11.9 Type 2 diabetes mellitus without complications; G47.33 Obstructive sleep apnea (adult) (pediatric); X58.XXXA Exposure to other specified factors, initial encounter; Y93.89 Activity, other specified; Y92.89 Other specified places as the place of occurrence of the external cause; Y99.8 Other external cause status; Z79.899 Other long term (current) drug therapy; Z90.49 Acquired absence of other specified parts of digestive tract; Z90.710 Acquired absence of both cervix and uterus; Z98.890 Other specified postprocedural states; Z87.440 Personal history of urinary (tract) infections; Z88.6 Allergy status to analgesic agent; Z91.041 Radiographic dye allergy status
CPT/HCPCS: 27792; 36415; 64445; 64447; 73600; 80053; 81001; 82948; 85025; A4618; A6223; A6253; A6402; A6449; A7000; C1713; J0131; J1100; J1171; J2003; J2250; J2405; J2704; J2795; J3010; J3490; J7030; J7120; L4360; Z7506; Z7508; Z7512; Z7610; 76000

== ENCOUNTER 2025-04-13 20:51 | Emergency (ER) | payer MEDICARE, MEDICAID ==
[~2025-04-13] VITALS: Ht 167.6 cm; Wt 88.6 kg
[~2025-04-13 20:51] MED LIST changes: -0.9 % SODIUM CHLORIDE 10 ML VIAL ONE; -BUPIVAcaine 2.5mg/ml inj 50ml vial (contains preservative) ONE; -HYDR-3973 PO; -HYDROmorphone/PF 0.2 MG/ML SYRINGE IV PRN; -LIDOcaine 2% (20mg/ml) 5ml vial ONE; -ROPIVAcaine 0.5% (5mg/ml) 30ml vial ONE; -bacitracin 15gm ointment TP ONE; -dexamethasone sod phosphate 4mg/ml inj. ONE; -ePHEDrine 50MG/ML INJ. ONE; -fentaNYL /PF 50mcg/ml 5ml ampule ONE; -fentaNYL/PF 50MCG/1 ML 2ML syringe IV PRN; -hydrALAZINE 20mg/ml inj. IV PRN; -labetalol 20mg/4ml (5mg/ml) syringe IV PRN; -midazolam 1 mg/ML 2ml injection ONE; -ondansetron/PF 4mg/2ml inj IV PRN; -ondansetron/PF 4mg/2ml inj ONE; -propofol inj 20 ML IV ONE; -ringers solution, lacted 1,000 ML IV SCH
[2025-04-13 21:09] VITALS: BP 120/82; PULSE 75; O2SAT 96
--- NOTE | 2025-04-13 22:04 | Physician Documentation ---
History of Present Illness ~ Chief Complaint: Post-operative complication Stated Complaint: ANKLE PAIN Time Seen by MD: 21:55 Primary Medical Doctor: BERTIN GRACIA Patient is seen today with complaints of bleeding from her bandage after she had surgery by Dr. Arias of her left ankle. Patient also states she was unable to get pain medications from their office. Patient is here today for wound check postop one day. Patient has no other concern or complaint at this time. Tetanus witin 5 years: No Medication Reconciliation Allergies: Coded Allergies: Iodinated Contrast Media (Verified Allergy, Severe, ITCHING/TROUBLE BREATHING, 04/11/25) morphine (Verified Allergy, Mild, "SHAKY", 04/11/25) Scheduled Atorvastatin Calcium (Atorvastatin Calcium), 1 TAB PO DAILY, (Reported) Diclofenac Sodium (Diclofenac Sodium), 1 APPLIC TOP TID, (Reported) Duloxetine HCl (Duloxetine HCl), 90 MG PO DAILY, (Reported) Empagliflozin (Jardiance), 1 TAB PO QAM, (Reported) Ibuprofen (Ibuprofen), 1 TAB PO DAILY, (Reported) Insulin Glargine,Hum.rec.anlog* (Lantus*), 40 UNITS SUBCUT HS, (Reported) Montelukast Sodium (Montelukast Sodium), 1 TAB PO DAILY, (Reported) Pregabalin (Pregabalin), 1 CAP PO Q12H, (Reported) Tirzepatide (Mounjaro), 1 SYR SUBCUT WEEKLY, (Reported) Tizanidine Hcl (Zanaflex), 1 TAB PO Q12H, (Reported) Scheduled PRN Albuterol Sulfate (Ventolin Hfa), 2 PUFFS INH Q4HPRN PRN for wheezing, (Reported) Ondansetron HCl (Ondansetron HCl), 1 TAB PO Q4HPRN PRN for nausea/vomiting, (Reported) Discontinued Medications Duloxetine HCl (Duloxetine HCl), 70 MG PO QPM, (Reported) Discontinued Reason: Prescription changed Famotidine (Pepcid), 1 TAB PO DAILY Discontinued Reason: patient no longer taking Glipizide (Glipizide), 1 TAB PO Q12H, (Reported) Discontinued Reason: patient no longer taking Hydrocodone Bit/Acetaminophen 5/325 MG (Echola 5/325 MG), 1 TAB PO Q6H PRN for pain Discontinued Reason: patient no longer taking ONDANSETRON ODT 4mg tablet (Ondansetron Odt), 1 TABLET PO Q6H PRN for nausea/vomiting Discontinued Reason: patient no longer taking Ondansetron Hcl (Zofran), 1 TAB PO Q12H PRN Discontinued Reason: patient no longer taking Pregabalin (Pregabalin), 1 CAP PO TID, (Reported) Discontinued Reason: patient no longer taking Past Medical History Past Medical History: High Cholesterol, Hypertension, Asthma, Sleep Apnea, *GI/HEPATOBILIARY*, Hernia, Diabetes, *MUSCULOSKELETAL*, Arthritis, Chronic Back Pain, Fibromyalgia Past Surgical History: abdominal surgery, appendectomy, cholecystectomy, hysterectomy, tubal ligation, other Other Past Surgical History: hernia repair, bladder sling Other Past Family History: Noncontributory Alcohol Use: None Drug Use: none Lives with: Spouse Lives In: Home Occupation: employed Review of Systems Constitutional: Denies: chills, fever, weakness Eyes: Denies: pain, blurred vision ENT: Denies: ear pain, nose pain, throat pain, mouth pain Respiratory: Denies: cough, shortness of breath Cardiovascular: Denies: chest pain, palpitations Gastrointestinal: Denies: abdominal pain, nausea, vomiting Genitourinary: Denies: burning, dysuria Female Genitalia: Denies: vaginal discharge, pelvic pain Neurological: Denies: headache, dizziness Musculoskeletal: Denies: pain, swelling Integumentary: Denies: rash, lesions Allergic/Immunologic: Denies: hives, itching Hematologic/Lymphatic: Denies: no symptoms reported Psychiatric: Denies: depression, anxiety Physical Exam Vital Signs: Temperature: 98.9, Source: Temporal, Heart Rate: 75, Respiratory Rate: 16, BP: 120/82, Pulse Oximetry: 96, Weight: 88.600 Oxygen Flow Rate: 0 Physical Exam General: Awake and Alert, no acute distress. HEENT: Conjunctiva pink, Sclera clear, Mucus Membranes moist. Neck: Supple without masses and tenderness. Musculoskeletal: Patient on exam does have surgical postop wound well approximated which does have very minimal bleeding. Patient has good capillary refill distally of the left foot and toes. Light touch sensation is diminished of the left foot. Sutures are in place. Extremities: No cyanosis,clubbing or edema. Skin: Warm and Dry. Progress Results/Orders Results/Orders Completed Orders - WINTER CULLEN CHI Hydrocodone/Apap 10/325 (Echola 10/325mg (04/13/25 21:56) Medications Received in ER Medications (Trade) Dose Ordered Sig/Mike Route PRN Reason Start Time Stop Time Status Last Admin Dose Admin (Echola 10/325mg tab) 1 tab ONCE STAT PO 04/13/25 21:56 04/13/25 22:26 DC 04/13/25 22:34 1 TAB Vital Signs 04/13/25 04/13/25 04/13/25 21:09 22:07 22:34 Temp 98.9 98.9 Pulse 75 Resp 16 18 B/P (MAP) 120/82 Pulse Ox 96 O2 Flow Rate 0 Medical Decision Making Findings Patient is seen today with complaints of bleeding from her bandage after she had surgery by Dr. Melton of her left ankle. Patient also states she was unable to get pain medications from their office. Patient is here today for wound check postop one day. Patient has no other concern or complaint at this time. Patient was given Echola 10/325 mg tablet by mouth in the ED tonight. Prescription of same sent to patient's pharmacy to be used as directed. Patient surgical postop wound/repair read bandaged tonight. Patient will follow up with Dr. Melton as soon as possible next week. Patient states she has a appointment Wednesday. Patient will keep wound clean and dry. Patient will keep her left ankle elevated above her heart. Departure Disposition: 01 HOME / SELF CARE / HOMELESS Impression: Primary Impression: Post-op bleeding Qualified Codes: L76.22 - Postprocedural hemorrhage of skin and subcutaneous tissue following other procedure Additional Impression: Visit for wound check Condition: Improved Additional Instructions: Patient was given Echola 10/325 mg tablet by mouth in the ED tonight. Prescription of same sent to patient's pharmacy to be used as directed. Patient surgical postop wound/repair read bandaged tonight. Patient will follow up with Dr. Melton as soon as possible next week. Patient states she has a appointment Wednesday. Patient will keep wound clean and dry. Patient will keep her left ankle elevated above her heart. Referrals: NO PRIMARY CARE PROVIDER (PCP) Prescriptions Hydrocodone Bit/Acetaminophen (Hydrocodone-Apap 10-325 Tablet) 10mg/325mg Tablet 1 TAB PO TID PRN PRN for pain for 5 Days, #15 TAB Prov: WINTER CULLEN PAC 04/13/25 Signature Scribe Signature: No scribe Attestation: No scribe WINTER CULLEN PAC Apr 13, 2025 22:04
[2025-04-13 22:07] VITALS: TEMP 98.9
[2025-04-13 22:34] VITALS: RESP 18
[2025-04-13] MEDS: HYDROcodone/acetaminophen 10/325mg tab PO STA (22:34)
[2025-04-13] MEDS ORDERED: HYDR-3973 PO (22:44)
== END 2025-04-13 22:50 | disposition home or self-care (01) ==
LOC: ER 20:52
DX: L76.22 Postprocedural hemorrhage of skin and subcutaneous tissue following other procedure (principal); Z48.00 Encounter for change or removal of nonsurgical wound dressing; E11.9 Type 2 diabetes mellitus without complications; I10 Essential (primary) hypertension; J45.909 Unspecified asthma, uncomplicated; E78.00 Pure hypercholesterolemia, unspecified; M19.90 Unspecified osteoarthritis, unspecified site; M79.7 Fibromyalgia; Z88.5 Allergy status to narcotic agent; Z88.8 Allergy status to other drugs, medicaments and biological substances; Z90.49 Acquired absence of other specified parts of digestive tract; Z90.710 Acquired absence of both cervix and uterus; Z91.041 Radiographic dye allergy status; Z98.890 Other specified postprocedural states
CPT/HCPCS: 99283; A4565; A6258; A6449

== ENCOUNTER 2025-05-13 10:15 | Emergency (ER) | payer MEDICARE, MEDICAID ==
[~2025-05-13] VITALS: Ht 167.6 cm; Wt 92.6 kg
[~2025-05-13 10:15] MED LIST changes: -IBUP-1985 PO; +IBUP600T52 PO
[2025-05-13 10:27] VITALS: BP 126/87; PULSE 80; TEMP 97.9; O2SAT 98
--- NOTE | 2025-05-13 10:35 | Physician Documentation ---
History of Present Illness ~ Stated Complaint: NECK/ARM PAIN Time Seen by MD: 10:36 OK to notify your PCP?: Yes Primary Medical Doctor: IVETK Source: patient Mode of Arrival: POV Exam Limitations: no limitations HPI 54-year-old female presents for left-sided neck pain with numbness and radiating pain down her left arm worse with certain movements over past 2 weeks. She has a history of neck pain which feels similar and waxes and wanes however this time it has stayed constant. She denies any falls or trauma. He has tried ice, heat, ibuprofen and Tylenol with little relief. NIH negative. Medication Reconciliation Allergies: Coded Allergies: Iodinated Contrast Media (Verified Allergy, Severe, ITCHING/TROUBLE BREATHING, 05/13/25) morphine (Verified Allergy, Mild, "SHAKY", 05/13/25) Scheduled Atorvastatin Calcium (Atorvastatin Calcium), 1 TAB PO DAILY, (Reported) Diclofenac Sodium (Diclofenac Sodium), 1 APPLIC TOP TID, (Reported) Duloxetine HCl (Duloxetine HCl), 90 MG PO DAILY, (Reported) Empagliflozin (Jardiance), 1 TAB PO QAM, (Reported) Ibuprofen (Ibuprofen), 1 TAB PO DAILY, (Reported) Insulin Glargine,Hum.rec.anlog* (Lantus*), 40 UNITS SUBCUT HS, (Reported) Montelukast Sodium (Montelukast Sodium), 1 TAB PO DAILY, (Reported) Pregabalin (Pregabalin), 1 CAP PO Q12H, (Reported) Tirzepatide (Mounjaro), 1 SYR SUBCUT WEEKLY, (Reported) Tizanidine Hcl (Zanaflex), 1 TAB PO Q12H, (Reported) Scheduled PRN Albuterol Sulfate (Ventolin Hfa), 2 PUFFS INH Q4HPRN PRN for wheezing, (Reported) Ondansetron HCl (Ondansetron HCl), 1 TAB PO Q4HPRN PRN for nausea/vomiting, (Reported) Past Medical History Past Medical History: High Cholesterol, Hypertension, Asthma, Sleep Apnea, *GI/HEPATOBILIARY*, Hernia, Diabetes, *MUSCULOSKELETAL*, Arthritis, Chronic Back Pain, Fibromyalgia Past Surgical History: abdominal surgery, appendectomy, cholecystectomy, hysterectomy, tubal ligation, other Other Past Surgical History: hernia repair, bladder sling Other Past Family History: Noncontributory Alcohol Use: None Drug Use: none Lives with: Spouse Lives In: Home Occupation: employed Review of Systems All Other Systems at this time: Reviewed and Negative Physical Exam Physical Exam Vital Signs: RN Vital Signs have been reviewed: Yes Pulse Oximetry Reflects: adequate oxygenation Physical Exam General: Alert, no distress. HEENT: No injection, moist mucous membranes. Neck: Full range of motion. Respiratory: No respiratory distress, equal chest rise and fall. Chest: No accessory muscle use. Cardiovascular: Regular rate and rhythm. Gastrointestinal: Nondistended. Extremities: Normal range of motion, no deformity. Range motion of bilateral arms. Good CSM, good sensation, good pulses in bilateral arms. Back: No C-spine midline tenderness. Tenderness to palpation along left upper trapezius muscle and down and along the muscle to the left shoulder. Neurologic: Oriented x4. Psychiatric: Normal mood and affect. Skin: Normal color, warm and dry. Progress Results/Orders Reviewed/noted all lab results: Yes Results/Orders Completed Orders - LUNA RICH SUPERVISOR Lidocaine 5% Patch (Lidoderm 5% Patch) (05/13/25 10:35) Cyclobenzaprine Tablet (Flexeril Tablet) (05/13/25 10:35) Ketorolac Trometh 15mg/Ml Vial (Toradol (05/13/25 10:35) Medications Received in ER Medications (Trade) Dose Ordered Sig/Mike Route PRN Reason Start Time Stop Time Status Last Admin Dose Admin (Lidoderm 5% Patch) 1 patch DAILY ONCE TP 05/13/25 10:35 05/13/25 10:37 DC 05/13/25 11:29 1 PATCH (Toradol injection) 15 mg ONCE ONCE IM 05/13/25 10:35 05/13/25 10:41 DC 05/13/25 11:28 15 MG Vital Signs 05/13/25 05/13/25 10:27 11:28 Temp 97.9 Pulse 80 Resp 16 18 B/P (MAP) 126/87 Pulse Ox 98 O2 Flow Rate 0 Medical Decision Making Additional info obtained from: old records Findings She is having some tenderness to palpation along the left trapezius muscle starting at the nape of the neck and extending down into her scapula. She reports having some numbness and tingling that extends down her left arm in his worse when she moves her neck different directions. She does not have any midline tenderness of her neck. She already has Zanaflex at home that is prescribed by her pain specialist. The pain specialist also has some X ray images ordered that she has an appointment to get done tomorrow morning and will follow up with him at the end of the week. I discussed that an x-ray today is not indicated. I gave her a Toradol injection as well as a lidocaine patch to help with the pain. She was given return instructions as well as follow up instructions. Differential Diagnosis Carotid dissection, cervical spine fracture, CVA, TN. Departure Disposition: HOME / SELF CARE / HOMELESS Impression: Primary Impression: Strain of neck muscle Condition: Stable Discharge Instructions: Muscle Strain, [id number] Additional Instructions: Continue with your plan to get x-rays done 1st thing tomorrow morning and see your pain specialist as scheduled. Return back here for any new or worsening symptoms. Referrals: NO PRIMARY CARE PROVIDER (PCP) Education Educated: Patient Educated regarding: diagnosis, treatment, prognosis, need for follow up Additional Comment Medical Screen Exam This patient recieved a medical screening examination. After reviewing the individual's medical complaints with presenting symptoms and performing an appropriate physical examination, it was determined that no immediate life- threatening emergency medical condition is present. This individual is also not a women having contractions. Signature Scribe Signature: . Attestation: Scribed for Luna Rich by Luna Martinez NP . 05/13/25 11:49 Parts of this note were created using [employer] voice recognition software program. While efforts were made to correct any mistakes made by this voice recognition software program, nonsensical phrases may remain in this note. In addition, there may be errors and syntax, grammar, content and spelling. LUNA RICH May 13, 2025 10:34
[2025-05-13 11:28] VITALS: RESP 18
[2025-05-13] MEDS: ketorolac trometh 15mg/ml vial 15 MG/ML ML IM ONE (11:28)
== END 2025-05-13 11:51 | disposition home or self-care (01) ==
LOC: ER 10:16
DX: S16.1XXA Strain of muscle, fascia and tendon at neck level, initial encounter (principal); E11.9 Type 2 diabetes mellitus without complications; I10 Essential (primary) hypertension; J45.909 Unspecified asthma, uncomplicated; E78.00 Pure hypercholesterolemia, unspecified; G47.30 Sleep apnea, unspecified; M19.90 Unspecified osteoarthritis, unspecified site; M79.7 Fibromyalgia; Z88.5 Allergy status to narcotic agent; Z88.8 Allergy status to other drugs, medicaments and biological substances; Z90.49 Acquired absence of other specified parts of digestive tract; Z90.710 Acquired absence of both cervix and uterus; Z91.041 Radiographic dye allergy status; Z98.890 Other specified postprocedural states; X58.XXXA Exposure to other specified factors, initial encounter; Y93.89 Activity, other specified; Y92.89 Other specified places as the place of occurrence of the external cause; Y99.8 Other external cause status
CPT/HCPCS: 96372; 99283; J1885